=== PATIENT | male | born 1990 | race Caucasian/White ===

== ENCOUNTER 2018-01-22 11:46 | Emergency (ER) | payer BC ==
[2018-01-22] MEDS ORDERED: NA CHLORIDE 0.9% 1,000 ML ONE (12:37)
[2018-01-22] MEDS ORDERED: FAMOTIDINE 20 MG/2 ML VIAL IV ONE (12:37)
[2018-01-22] MEDS ORDERED: DICYCLOMINE HCL 10 MG CAP ONE (12:37)
[2018-01-22] MEDS ORDERED: ONDANSETRON 4 MG/2 ML VIAL ONE (12:37)
[2018-01-22 12:45] LABS: Absolute Lymphocytes (CBC) 2.8 K/uL (0.7-4.9); Absolute Neutrophil 3.7 K/uL (1.8-8.0); Eosinophils % 1.4 % (0-4.4); Hematocrit 44.2 % (39.6-49.0); Lymphocytes % 36.1 % (15.3-44.8); MCH 29.3 pg (27.0-35.0); MCV 84.7 fL (80-100); MPV 8.1 fL (7.6-11.3); Monocytes % 12.9 % (3.3-12.3); RBC Red Blood Cell Count 5.22 M/uL (4.33-5.43)
[2018-01-22 12:56] LABS: Albumin 3.8 g/dL (3.4-5.0); Bilirubin Direct 0.1 mg/dL (0-0.2); Bilirubin Total 0.3 mg/dL (0.2-1.0); Potassium 4.3 mmol/L (3.5-5.1); Protein, Total 7.3 g/dL (6.4-8.2)
[2018-01-22 13:27] LABS: Urine Bacteria NONE SEEN /HPF (NONE SEEN); Urine Culture Reflex Order NOT NEEDED; Urine Mucus MOD /HPF (NONE SEEN); Urine RBC NONE SEEN /HPF (NONE SEEN)
--- NOTE | 2018-01-22 14:08 | RAD REPORT ---
EXAM DESCRIPTION: CTAbdomen Pelvis W Contrast - 01/22/2018 1:51 pm CLINICAL HISTORY: Abdominal pain. ABD PAIN COMPARISON: No comparisons TECHNIQUE: Biphasic CT imaging of the abdomen and pelvis was performed with 100 ml non-ionic IV cont rast. All CT scans are performed using dose optimization technique as appropriate and may include automated exposure control or mA/KV adjustment according to patient size. FINDINGS: The lung bases are clear. The liver, spleen, pancreas, adrenal glands and kidneys are within normal limits. No bowel obstruction, free air, free fluid or abscess. The appendix is normal. No evidence of signi ficant lymphadenopathy. No suspicious bony findings. IMPRESSION: No acute intra-abdominal or pelvic finding.
--- NOTE | 2018-01-22 14:47 | EDPHYS ---
Physician Documentation [facility] Name: Theo Dela Cruz Age: 27 yrs Sex: Male : 1990 Arrival Date: 01/22/2018 Time: 11:48 Bed 16 Private MD: None, None ED Physician Nabil Sher HPI: 01/22 12:20 This 27 yrs old Male presents to ER via Ambulatory with complaints of cp Abdominal Pain, Vomiting. 12:20 The patient presents with abdominal pain in the lower abdomen. cp 12:20 Onset: The symptoms/episode began/occurred this morning. Associated signs and symptoms: cp Pertinent positives: 2 episodes of vomiting, Pertinent negatives: anorexia, blood in stools, chest pain, constipation, diarrhea, dysuria, fever, testicular pain. 12:20 The symptoms are described as waxing/waning. Modifying factors: the symptoms are cp aggravated by pressure. Severity of pain: in the emergency department the pain has improved mildly. Historical: - Allergies: 11:51 No Known Allergies; sv - Home Meds: 11:51 None [Active]; sv - PMHx: 11:51 Back pain; Chronic pain; sv - PSHx: 11:51 back surg; sv - Immunization history:: Adult Immunizations up to date. - Social history:: Smoking status: Patient/guardian denies using tobacco. - Ebola Screening: : No symptoms or risks identified at this time. ROS: 12:26 Constitutional: Negative for body aches, chills, fever, poor PO intake. cp 12:26 Eyes: Negative for injury, pain, redness, and discharge. cp 12:26 ENT: Negative for drainage from ear(s), ear pain, sore throat, difficulty swallowing, difficulty handling secretions. 12:26 Cardiovascular: Negative for chest pain, edema, palpitations. 12:26 Respiratory: Negative for cough, shortness of breath, wheezing. 12:26 Abdomen/GI: Positive for abdominal pain, nausea, vomiting, of the right lower quadrant and left lower quadrant, Negative for diarrhea, constipation, dysphagia, black/tarry stool, rectal bleeding. 12:26 Back: Negative for pain at rest, pain with movement, radiated pain. 12:26 : Negative for urinary symptoms, testicular pain 12:26 MS/extremity: Negative for decreased range of motion, pain, paresthesias. 12:26 Skin: Negative for cellulitis, rash. 12:26 Neuro: Negative for altered mental status, headache, weakness. 12:26 All other systems are negative. Exam: 12:30 Constitutional: The patient appears in no acute distress, alert, awake, non-toxic, well cp developed, well nourished. 12:30 Head/Face: Normocephalic, atraumatic. Eyes: Pupils equal round and reactive to light, cp extra-ocular motions intact. Lids and lashes normal. Conjunctiva and sclera are non-icteric and not injected. Cornea within normal limits. Periorbital areas with no swelling, redness, or edema. ENT: Nares patent. No nasal discharge, no septal abnormalities noted. Tympanic membranes are normal and external auditory canals are clear. Oropharynx with no redness, swelling, or masses, exudates, or evidence of obstruction, uvula midline. Mucous membranes moist. Neck: Trachea midline, no thyromegaly or masses palpated, and no cervical lymphadenopathy. Supple, full range of motion without nuchal rigidity, or vertebral point tenderness. No Meningismus. Chest/axilla: Normal chest wall appearance and motion. Nontender with no deformity. No lesions are appreciated. 12:30 Cardiovascular: Rate: normal, Rhythm: regular, Pulses: Pulses are 2+ in right radial artery and left radial artery. Heart sounds: murmur, not appreciated, rub, not appreciated, gallop, not appreciated, Edema: is not appreciated. 12:30 Respiratory: the patient does not display signs of respiratory distress, Respirations: normal, no use of accessory muscles, no retractions, no splinting, no tachypnea, labored breathing, is not present, Breath sounds: are clear throughout, no decreased breath sounds, no stridor, no wheezing. 12:30 Abdomen/GI: Inspection: abdomen appears normal, Bowel sounds: active, all quadrants, Palpation: soft, in all quadrants, moderate abdominal tenderness, in the left lower quadrant, rebound tenderness, is not appreciated, voluntary guarding, is elicited in the left lower quadrant, involuntary guarding, is not appreciated. 12:30 Back: pain, is absent, ROM is normal. 12:30 Skin: cellulitis, is not appreciated, no rash present. 14:45 ECG was reviewed by the Attending Physician. cp Vital Signs: 11:52 BP 145 / 106; Pulse 55; Resp 20; Temp 97.9(TE); Pulse Ox 98% ; Weight 108.86 kg; Height sv 6 ft. 1 in. (185.42 cm); Pain 4/10; 12:50 BP 124 / 96; Pulse 57; Resp 17; Pulse Ox 97% on R/A; rb1 13:50 BP 116 / 85; Pulse 48; Resp 19; Pulse Ox 99% ; rb1 14:48 BP 124 / 87; Pulse 44; Resp 18; Pulse Ox 97% on R/A; rb1 15:25 BP 118 / 82; Pulse 48; Resp 17; Pulse Ox 100% ; rb1 11:52 Body Mass Index 31.66 (108.86 kg, 185.42 cm) sv 14:48 Provider notifed of HR. rb1 MDM: 12:08 Patient medically screened. cp 12:30 Differential diagnosis: appendicitis, cholecystitis, Cholelithiasis, diverticulitis, cp gastritis, Pyelonephritis, Testicular Torsion, Ureterolithiasis, urinary tract infection. 14:45 Data reviewed: vital signs, nurses notes, lab test result(s), radiologic studies, CT cp scan. 14:45 Counseling: I had a detailed discussion with the patient and/or guardian regarding: the cp historical points, exam findings, and any diagnostic results supporting the discharge/admit diagnosis, lab results, radiology results, the need for outpatient follow up, a family practitioner, to return to the emergency department if symptoms worsen or persist or if there are any questions or concerns that arise at home. Response to treatment: the patient's symptoms have markedly improved after treatment, and as a result, I will discharge patient. Special discussion: Based on the patient's Hx, exam, and Dx evaluation, there is no indication for emergent surgery or inpatient Tx. It is understood by the patient/guardian that if the Sx's persist or worsen they need to return immediately for re-evaluation. 01/22 12:16 Order name: Amylase, Serum; Complete Time: 13:29 cp 01/22 12:16 Order name: Basic Metabolic Panel; Complete Time: 13:29 cp 01/22 13:30 Interpretation: Normal except: CL 110; GFR 82. cp 01/22 12:16 Order name: CBC with Diff; Complete Time: 13:29 cp 01/22 13:30 Interpretation: Normal except: MN% 12.9. cp 08/02 12:16 Order name: Creatinine for Radiology; Complete Time: 13:29 cp 02 12:16 Order name: Hepatic Function; Complete Time: 13:29 cp 02 12:16 Order name: Lipase; Complete Time: 13:29 cp 02 12:16 Order name: Urine Microscopic Only; Complete Time: 13:29 cp 02 12:16 Order name: IV Saline Lock; Complete Time: 12:54 cp 02 12:19 Order name: CT Abd/Pelvis - W/Contrast; Complete Time: 14:09 cp 02 14:28 Order name: EKG; Complete Time: 14:28 rb1 01/22 12:16 Order name: Labs collected and sent; Complete Time: 12:55 cp 01/22 12:16 Order name: Urine Dipstick-Ancillary (obtain specimen); Complete Time: 12:55 cp 01/22 14:09 Order name: PO challenge; Complete Time: 15:13 cp 01/22 14:28 Order name: EKG - Nurse/Tech; Complete Time: 15:13 rb1 EC:45 Rate is 45 beats/min. Rhythm is regular. MA interval is normal. QRS interval is normal. cp QT interval is normal. No ST changes noted. Interpreted by me. Reviewed by me. Administered Medications: 12:30 Drug: NS 0.9% 1000 ml Route: IV; Rate: 1 bolus; Site: left antecubital; rb1 13:38 Follow up: IV Status: Completed infusion rb1 12:30 Drug: Zofran 4 mg Route: IVP; Site: left antecubital; rb1 12:48 Follow up: Response: No adverse reaction; Nausea is decreased rb1 12:30 Drug: Bentyl 20 mg Route: PO; rb1 13:00 Follow up: Response: No adverse reaction; Pain is decreased rb1 12:30 Drug: Pepcid 20 mg Route: IVP; Site: left antecubital; rb1 12:48 Follow up: Response: No adverse reaction rb1 Disposition: 15:36 Co-signature as Attending Physician, Nabil Sher MD I agree with the assessment and kdr plan of care. Disposition: 01/22/18 14:47 Discharged to Home. Impression: Lower abdominal pain, unspecified, Nausea and vomiting. - Condition is Stable. - Discharge Instructions: Abdominal Pain, Adult, Dehydration, Adult, Nausea and Vomiting, Adult, Form - Return To Work. - Prescriptions for Bentyl 20 mg Oral Tablet - take 1 tablet by ORAL route every 6 hours As needed; 20 tablet. Pepcid 20 mg Oral Tablet - take 1 tablet by ORAL route every 12 hours for 10 days; 20 tablet. Zofran 4 mg Oral Tablet - take 1 tablet by ORAL route every 12 hours As needed; 20 tablet. - Medication Reconciliation Form, Thank You Letter, Antibiotic Education, Prescription Opioid Use, Work release form form. - Follow up: Private Physician; When: 1 - 2 days; Reason: Recheck today's complaints. - Problem is new. - Symptoms have improved. Signatures: Dispatcher [employer] EDMS Milena Rayo RN RN sv Nabil Sher MD MD kdr Rick Lamb PA PA cp Barber, Rebecca RN RN rb1 Corrections: (The following items were deleted from the chart) 15:29 14:47 01/22/2018 14:47 Discharged to Home. Impression: Lower abdominal pain, rb1 unspecified; Nausea and vomiting. Condition is Stable. Forms are Medication Reconciliation Form, Thank You Letter, Antibiotic Education, Prescription Opioid Use. Follow up: Private Physician; When: 1 - 2 days; Reason: Recheck today's complaints. Problem is new. Symptoms have improved. cp
--- NOTE | 2018-01-22 14:47 | ER ---
Nurse's Notes [facility] Name: Theo Dela Cruz Age: 27 yrs Sex: Male : 1990 Arrival Date: 01/22/2018 Time: 11:48 Bed 16 Private MD: None, None Diagnosis: Lower abdominal pain, unspecified;Nausea and vomiting Presentation: 01/22 11:51 Presenting complaint: Patient states: RLQ and LLQ pain and vomiting since this morning sv around 0100. Transition of care: patient was not received from another setting of care. Onset of symptoms was January 22, 2018 at 01:00. Care prior to arrival: None. 11:51 Method Of Arrival: Ambulatory sv 11:51 Acuity: CRISTIAN 3 sv 11:56 Risk Assessment: Do you want to hurt yourself or someone else? Patient reports no rb1 desire to harm self or others. Initial Sepsis Screen: Does the patient meet any 2 criteria? No. Patient's initial sepsis screen is negative. Does the patient have a suspected source of infection? No. Patient's initial sepsis screen is negative. Historical: - Allergies: 11:51 No Known Allergies; sv - Home Meds: 11:51 None [Active]; sv - PMHx: 11:51 Back pain; Chronic pain; sv - PSHx: 11:51 back surg; sv - Immunization history:: Adult Immunizations up to date. - Social history:: Smoking status: Patient/guardian denies using tobacco. - Ebola Screening: : No symptoms or risks identified at this time. Screenin:56 Abuse screen: Denies threats or abuse. Nutritional screening: No deficits noted. rb1 Tuberculosis screening: No symptoms or risk factors identified. Fall Risk None identified. Assessment: 11:56 General: Appears in no apparent distress. comfortable, Behavior is calm, cooperative, rb1 Denies fever. Pain: Complains of pain in suprapubic area, right lower quadrant and left lower quadrant Pain currently is 4 out of 10 on a pain scale. Pain began Today at 0100. Neuro: Level of Consciousness is awake, alert, obeys commands, Oriented to person, place, time, situation. Cardiovascular: Capillary refill < 3 seconds is brisk in bilateral fingers. Respiratory: Airway is patent Respiratory effort is even, unlabored, Respiratory pattern is regular, symmetrical. GI: Bowel sounds present X 4 quads. Abd is soft Abdomen is tender to palpation in suprapubic area and left lower quadrant Reports nausea, vomiting, x 3 since 0100 this morning Patient currently denies diarrhea. : No signs and/or symptoms were reported regarding the genitourinary system. : Denies burning with urination, urinary frequency. Derm: Skin is pink, warm \T\ dry. 12:55 Reassessment: Patient appears in no apparent distress at this time. No changes from rb1 previously documented assessment. Family at bedside. 13:48 Reassessment: Pt in CT now. ss 14:15 Reassessment: Patient appears in no apparent distress at this time. Patient and/or rb1 family updated on plan of care and expected duration. Pain level reassessed. Patient is alert, oriented x 3, equal unlabored respirations, skin warm/dry/pink. 15:12 Reassessment: Patient appears in no apparent distress at this time. No changes from rb1 previously documented assessment. Vital Signs: 11:52 BP 145 / 106; Pulse 55; Resp 20; Temp 97.9(TE); Pulse Ox 98% ; Weight 108.86 kg; Height sv 6 ft. 1 in. (185.42 cm); Pain 4/10; 12:50 BP 124 / 96; Pulse 57; Resp 17; Pulse Ox 97% on R/A; rb1 13:50 BP 116 / 85; Pulse 48; Resp 19; Pulse Ox 99% ; rb1 14:48 BP 124 / 87; Pulse 44; Resp 18; Pulse Ox 97% on R/A; rb1 15:25 BP 118 / 82; Pulse 48; Resp 17; Pulse Ox 100% ; rb1 11:52 Body Mass Index 31.66 (108.86 kg, 185.42 cm) sv 14:48 Provider notifed of HR. rb1 ED Course: 11:48 Patient arrived in ED. sb2 11:49 None, None is Private Physician. sb2 11:51 Triage completed. sv 11:52 Arm band placed on right wrist. sv 11:56 Patient has correct armband on for positive identification. Placed in gown. Bed in low rb1 position. Call light in reach. Side rails up X 1. Pulse ox on. NIBP on. Warm blanket given. 12:01 Rick Lamb PA is PHCP. cp 12:01 Nabil Sher MD is Attending Physician. cp 12:08 Tatianna Cooney, RN is Primary Nurse. rb1 12:41 Oral contrast given. vr 13:51 CT Abd/Pelvis - W/Contrast In Process Unspecified. EDMS 14:49 EKG done, by television technician. reviewed by Rick FLORES. at1 15:29 No provider procedures requiring assistance completed. IV discontinued, intact, rb1 bleeding controlled, No redness/swelling at site. Pressure dressing applied. Administered Medications: 12:30 Drug: NS 0.9% 1000 ml Route: IV; Rate: 1 bolus; Site: left antecubital; rb1 13:38 Follow up: IV Status: Completed infusion rb1 12:30 Drug: Zofran 4 mg Route: IVP; Site: left antecubital; rb1 12:48 Follow up: Response: No adverse reaction; Nausea is decreased rb1 12:30 Drug: Bentyl 20 mg Route: PO; rb1 13:00 Follow up: Response: No adverse reaction; Pain is decreased rb1 12:30 Drug: Pepcid 20 mg Route: IVP; Site: left antecubital; rb1 12:48 Follow up: Response: No adverse reaction rb1 Outcome: 14:47 Discharge ordered by MD. cp 15:29 Patient left the ED. rb1 15:29 Discharged to home ambulatory, with family. rb1 15:29 Condition: stable 15:29 Discharge instructions given to patient, Instructed on discharge instructions, follow up and referral plans. medication usage, Demonstrated understanding of instructions, follow-up care, medications, Prescriptions given X 3. Signatures: Dispatcher [employer] EDSC Milena Rayo RN RN sv Smirch, Shelby, RN RN ss Davis, Victoria vr Orquidea hollingsworth, manager travel EKG Tat1 Rick Lamb PA PA cp Tatianna oConey, RN RN rb1 Micaela Alcala sb2
--- NOTE | 2018-01-22 16:52 | EKG ---
Test Date: 2018-01-22 Test Time: 14:39:40 Seam Rubbing Machine Operator: LAN MEASUREMENT RESULTS: Intervals: Rate: 45 [place]: 114 QRSD: 96 QT: 456 QTc: 394 [place]: P: 5 [place]: 114 QRS: 38 T: 16 INTERPRETIVE STATEMENTS: Sinus bradycardia with sinus arrhythmia Otherwise normal ECG No previous ECG available for comparison Electronically Signed On 01-22-18 16:51:45 CDT by Dustin Martínez
== END 2018-01-22 15:29 | disposition home or self-care (01) ==
LOC: ER 11:46
DX: R10.30 Lower abdominal pain, unspecified (principal); R11.2 Nausea with vomiting, unspecified
CPT/HCPCS: 36415; 74177; 80048; 80076; 81015; 82150; 83690; 85025; 93005; 96361; 96374; 96375; 99284; J2405; J7030; Q9967

== ENCOUNTER 2020-01-07 17:21 | Emergency (ER) | payer BC, SELFPAY ==
[2020-01-07] MEDS ORDERED: dexAMETHasone 10 MG/ML VIAL ONE (18:23)
[2020-01-07] MEDS ORDERED: NA CHLORIDE 0.9% 1,000 ML ONE (18:27)
--- NOTE | 2020-01-07 18:32 | RAD REPORT ---
EXAM DESCRIPTION: RAD - Chest Single View - 01/07/2020 6:25 pm CLINICAL HISTORY: DYSPNEA Chest pain. COMPARISON: Chest Single View dated 04/15/2017 FINDINGS: Portable technique limits examination quality. The lungs are grossly clear. The heart is normal in size. No displaced fractures. IMPRESSION: No acute intrathoracic process suspected.
[2020-01-07 18:47] LABS: Absolute Lymphocytes (CBC) 4.5 K/uL (0.7-4.9); Basophils % 0.8 % (0-1.3); Hematocrit 45.8 % (39.6-49.0); Lymphocytes % 35.4 % (15.3-44.8); MPV 7.9 fL (7.6-11.3)
--- NOTE | 2020-01-07 19:09 | ER ---
Nurse's Notes [facility] Name: Theo Dela Cruz Age: 29 yrs Sex: Male : 1990 Arrival Date: 01/07/2020 Time: 17:30 Bed 16 Private MD: Diagnosis: Viral infection, unspecified Presentation: 01/06 17:35 Chief complaint: Patient states: N/V/D for 4 days. Cough and SOB for 1 day. No fever at ll1 home. Coronavirus screen: Patient reports a cough. Patient reports shortness of breath or difficulty breathing. Patient denies measured and/or subjective temperature greater than 100.4F prior to today's visit. Patient denies travel on a cruise ship or to a country the [facility] currently lists as an affected area. Patient reports contact with known and/or suspected case of COVID-19. Patient was placed back in the lobby due to no available rooms at this time. Patient was instructed to always wear their mask and to isolate themselves as much as possible from others in the lobby. Ebola Screen: Patient denies travel to an Ebola-affected area in the 21 days before illness onset. Initial Sepsis Screen: Does the patient meet any 2 criteria? HR > 90 bpm. Risk Assessment: Do you want to hurt yourself or someone else? Patient reports no desire to harm self or others. Onset of symptoms was January 03, 2020. 17:35 Method Of Arrival: Ambulatory ll1 17:35 Acuity: CRISTIAN 3 ll1 20:01 Initial Sepsis Screen: Does the patient have a suspected source of infection? No. ks7 Patient's initial sepsis screen is negative. Triage Assessment: 18:39 General: Appears uncomfortable, obese, Behavior is calm, cooperative. Pain: Complains ks7 of pain in generalized body aches Pain currently is 5 out of 10 on a pain scale. Quality of pain is described as aching. Respiratory: Reports shortness of breath pain with cough pain with respiration Onset: The symptoms/episode began/occurred yesterday, the patient has moderate shortness of breath. Historical: - Allergies: 17:37 No Known Allergies; ll1 - PMHx: 17:37 Back pain; Chronic pain; ll1 17:37 ADD/ADHD; Bipolar disorder; ll1 - PSHx: 17:37 back surg; ll1 - Immunization history:: Adult Immunizations up to date. - Social history:: Smoking status: Patient denies any tobacco usage or history of. Patient/guardian denies using alcohol, street drugs, tobacco products. Screenin:41 Abuse screen: Denies threats or abuse. Nutritional screening: No deficits noted. ks7 Tuberculosis screening: No symptoms or risk factors identified. Fall Risk None identified. Assessment: 18:41 General: Appears uncomfortable. Cardiovascular: Rhythm is regular. Respiratory: Airway ks7 is patent Respiratory effort is even, [place] 20:01 Reassessment: pt ambulated out of ED independently. ks7 Vital Signs: 17:35 Pulse 104; Resp 18; Temp 98.5; Pulse Ox 96% ; Pain 6/10; ll1 17:35 BP 155 / 100; ll1 18:39 Temp 98(TE); Pain 5/10; ks7 20:00 BP 144 / 96; Pulse 76; Resp 18; Temp 97.6(TE); Pulse Ox 96% on R/A; Pain 0/10; ks7 20:01 Pulse Ox 96% on R/A; Pain 0/10; ks7 ED Course: 17:30 Patient arrived in ED. fj1 17:36 Triage completed. ll1 17:38 Arm band placed on Patient notified of wait time. ll1 17:48 Yuniel Man PA is PHCP. jr8 17:48 Nabil Sher MD is Attending Physician. jr8 18:12 Ashwini Villagomez, BRIGIDA is Primary Nurse. ks7 18:25 XRAY Chest (1 view) In Process Unspecified. EDMS 18:41 Resting quietly. ks7 18:41 Patient has correct armband on for positive identification. Bed in low position. Call ks7 light in reach. Side rails up X2. 18:41 No provider procedures requiring assistance completed. Inserted saline lock: 20 gauge ks7 in left antecubital area, using aseptic technique. 18:43 COVID-19 Sent. ks7 18:44 Basic Metabolic Panel Sent. ks7 18:44 CBC with Diff Sent. ks7 20:00 IV discontinued, intact, bleeding controlled, No redness/swelling at site. ks7 Administered Medications: Discontinued: NS 0.9% 1000 ml IV at 1000 ml once 18:35 Drug: NS 0.9% 1000 ml Route: IV; Rate: 1000 ml; Site: left antecubital; ks7 18:35 Drug: Decadron - Dexamethasone 10 mg Route: IVP; Rate: bolus; Site: left antecubital; ks7 20:01 Follow up: Pulse Ox 96% RA; Pain 0/10 Adult 7 Outcome: 19:08 Discharge ordered by . jr8 20:00 Discharged to home ambulatory, with family. ks7 20:00 Condition: good 20:00 Discharge instructions given to patient, Instructed on discharge instructions, medication usage, Demonstrated understanding of instructions, medications. 20:02 Patient left the ED. ks7 Addendum: 01/12/2020 13:02 Addendum: COVID-19 Result: Negative result given to RN to notify pt. Contacted by: Poonam Mack RN . Notified pt of negative COVID 19 swab results. Pt advised that even with a negative test result they should remain in isolation until symptom free for 3 days without medication. Pt also advised to return to the ED for worsening symptoms. Signatures: Dispatcher [employer] EDMI Vanesa Mack RN RN dm5 Yuniel Man PA PA jr8 Alexis Gilbert fj1 Maxi Peng RN RN ll1 Ashwini Villagomez RN RN ks7
--- NOTE | 2020-01-07 19:09 | EDPHYS ---
Physician Documentation [facility] Name: Theo Dela Cruz Age: 29 yrs Sex: Male : 1990 Arrival Date: 01/07/2020 Time: 17:30 Bed 16 Private MD: ED Physician Nabil Sher HPI: 01/06 19:05 This 29 yrs old Male presents to ER via Ambulatory with complaints of jr8 Breathing Difficulty, Vomiting/Diarrhea. 19:05 The patient has shortness of breath at rest. Onset: The symptoms/episode began/occurred jr8 gradually, 3 day(s) ago. Duration: The symptoms are continuous. The patient's shortness of breath has no apparent modifying factors. Associated signs and symptoms: Pertinent positives: non-productive cough, vomiting, diarrhea. Severity of symptoms: At their worst the symptoms were moderate in the emergency department the symptoms are unchanged. The patient has not experienced similar symptoms in the past. The patient has not recently seen a physician. Stated that he has been in contact with COVID + Family member. Now having symptoms of covid . Historical: - Allergies: 17:37 No Known Allergies; ll1 - PMHx: 17:37 Back pain; Chronic pain; ll1 17:37 ADD/ADHD; Bipolar disorder; ll1 - PSHx: 17:37 back surg; ll1 - Immunization history:: Adult Immunizations up to date. - Social history:: Smoking status: Patient denies any tobacco usage or history of. Patient/guardian denies using alcohol, street drugs, tobacco products. ROS: 19:05 Eyes: Negative for injury, pain, redness, and discharge, ENT: Negative for injury, jr8 pain, and discharge, Neck: Negative for injury, pain, and swelling, Cardiovascular: Negative for chest pain, palpitations, and edema, Back: Negative for injury and pain, MS/Extremity: Negative for injury and deformity, Skin: Negative for injury, rash, and discoloration, Neuro: Negative for headache, weakness, numbness, tingling, and seizure. 19:05 Constitutional: Positive for fatigue, malaise. 19:05 Respiratory: Positive for cough, shortness of breath. 19:05 Abdomen/GI: Positive for nausea, vomiting, and diarrhea, Negative for abdominal pain. Exam: 19:05 Eyes: Pupils equal round and reactive to light, extra-ocular motions intact. Lids and jr8 lashes normal. Conjunctiva and sclera are non-icteric and not injected. Cornea within normal limits. Periorbital areas with no swelling, redness, or edema. ENT: Nares patent. No nasal discharge, no septal abnormalities noted. Tympanic membranes are normal and external auditory canals are clear. Oropharynx with no redness, swelling, or masses, exudates, or evidence of obstruction, uvula midline. Mucous membranes moist. Neck: Trachea midline, no thyromegaly or masses palpated, and no cervical lymphadenopathy. Supple, full range of motion without nuchal rigidity, or vertebral point tenderness. No Meningismus. Cardiovascular: Regular rate and rhythm with a normal S1 and S2. No gallops, murmurs, or rubs. Normal PMI, no JVD. No pulse deficits. Respiratory: Lungs have equal breath sounds bilaterally, clear to auscultation and percussion. No rales, rhonchi or wheezes noted. No increased work of breathing, no retractions or nasal flaring. Abdomen/GI: Soft, non-tender, with normal bowel sounds. No distension or tympany. No guarding or rebound. No evidence of tenderness throughout. Back: No spinal tenderness. No costovertebral tenderness. Full range of motion. Skin: Warm, dry with normal turgor. Normal color with no rashes, no lesions, and no evidence of cellulitis. MS/ Extremity: Pulses equal, no cyanosis. Neurovascular intact. Full, normal range of motion. Neuro: Awake and alert, GCS 15, oriented to person, place, time, and situation. Cranial nerves II-XII grossly intact. Motor strength 5/5 in all extremities. Sensory grossly intact. Cerebellar exam normal. Normal gait. Vital Signs: 17:35 Pulse 104; Resp 18; Temp 98.5; Pulse Ox 96% ; Pain 6/10; ll1 17:35 BP 155 / 100; ll1 18:39 Temp 98(TE); Pain 5/10; ks7 20:00 BP 144 / 96; Pulse 76; Resp 18; Temp 97.6(TE); Pulse Ox 96% on R/A; Pain 0/10; ks7 20:01 Pulse Ox 96% on R/A; Pain 0/10; ks7 MDM: 17:52 Patient medically screened. jr8 19:06 Data reviewed: vital signs, nurses notes, lab test result(s), radiologic studies, plain jr8 films, and as a result, I will discharge patient. Data interpreted: Pulse oximetry: on room air is 96 %. Interpretation: normal. Counseling: I had a detailed discussion with the patient and/or guardian regarding: the historical points, exam findings, and any diagnostic results supporting the discharge/admit diagnosis, lab results, radiology results, the need for outpatient follow up, a family practitioner, to return to the emergency department if symptoms worsen or persist or if there are any questions or concerns that arise at home. ED course: Patient stable. Without acute respiratory compromise. SP02 stable. No acute findings on imaging and labs. Will d/c home to f/u with PCP. To continue to isolate until COVID swab comes back. If worse knows to return to ED . 01/06 18:12 Order name: CBC with Diff; Complete Time: 18:53 [facility] 01/06 18:12 Order name: Basic Metabolic Panel; Complete Time: 19:06 [facility] 01/06 18:12 Order name: COVID-19 [facility] 01/06 18:12 Order name: XRAY Chest (1 view); Complete Time: 18:48 [facility] 01/06 18:12 Order name: IV; Complete Time: 18:44 [facility] Administered Medications: Discontinued: NS 0.9% 1000 ml IV at 1000 ml once 18:35 Drug: NS 0.9% 1000 ml Route: IV; Rate: 1000 ml; Site: left antecubital; ks7 18:35 Drug: Decadron - Dexamethasone 10 mg Route: IVP; Rate: bolus; Site: left antecubital; ks7 20:01 Follow up: Pulse Ox 96% RA; Pain 0/10 Adult ks7 Disposition: 01/07 08:19 Co-signature as Attending Physician, Nabil Sher MD I agree with the assessment and kdr plan of care. Disposition: 01/07/20 19:08 Discharged to Home. Impression: Viral infection, unspecified. - Condition is Stable. - Discharge Instructions: COVID-19. - Prescriptions for Prednisone 20 mg Oral Tablet - take 1 tablet by ORAL route once daily for 7 days; 7 tablet. Zofran 4 mg Oral Tablet - take 1 tablet by ORAL route every 12 hours As needed; 20 tablet. - Medication Reconciliation Form, Thank You Letter, Antibiotic Education, Prescription Opioid Use form. - Follow up: Private Physician; When: 1 week; Reason: Recheck today's complaints, Continuance of care, Re-evaluation by your physician. - Problem is new. - Symptoms have improved. Signatures: Dispatcher [employer] EDMS Nabil Sher MD MD kdr Roszak, Josh, PA PA jr8 Maxi Peng RN RN ll1 Ashwini Villagomez RN RN ks7 Corrections: (The following items were deleted from the chart) 01/06 20:02 19:08 01/07/2020 19:08 Discharged to Home. Impression: Viral infection, unspecified. ks7 Condition is Stable. Forms are Medication Reconciliation Form, Thank You Letter, Antibiotic Education, Prescription Opioid Use. Follow up: Private Physician; When: 1 week; Reason: Recheck today's complaints, Continuance of care, Re-evaluation by your physician. Problem is new. Symptoms have improved. jr8
[2020-01-07 20:49] VITALS: O2SAT 96
[2020-01-07 20:52] VITALS: BP 144/96; TEMP 97.6
== END 2020-01-07 20:02 | disposition home or self-care (01) ==
LOC: ER 17:21
DX: B34.9 Viral infection, unspecified (principal); Z20.828 Contact with and (suspected) exposure to other viral communicable diseases
CPT/HCPCS: 36415; 71045; 80048; 85025; 96374; 99284; J1100; J7030; U0001

== ENCOUNTER 2020-09-14 16:18 | Inpatient (IN) | payer SELFPAY ==
[2020-09-14 18:15] LABS: Basophils % 1.2 % (0-1.3); Hematocrit 46.3 % (39.6-49.0); Lymphocytes % 31.7 % (15.3-44.8); MPV 7.6 fL (7.6-11.3); RBC Red Blood Cell Count 5.51 M/uL (4.33-5.43)
[2020-09-14] MEDS ORDERED: ASPIRIN 81 MG CHEWABLE TABLET ONE (18:22)
[2020-09-14 18:23] LABS: Protime INR 1.03
[2020-09-14 18:35] LABS: ALT/SGPT 51 U/L (12-78); AST/SGOT 24 U/L (15-37); Alkaline Phosphatase 89 U/L (45-117); BUN Blood Urea Nitrogen 18 mg/dL (7-18); Bicarbonate 24 mmol/L (21-32); Bilirubin Direct 0.2 mg/dL (0-0.2); Bilirubin Total 0.5 mg/dL (0.2-1.0); Glucose Level 89 mg/dL (74-106); Magnesium 2.3 mg/dL (1.8-2.4); NT PRO-BNP 6 pg/mL (<125); Potassium 4.1 mmol/L (3.5-5.1); Protein, Total 8.3 g/dL (6.4-8.2); Sodium Level 140 mmol/L (136-145); Troponin (Emerg Dept Use Only) < 0.02 ng/mL (0.0-0.045)
--- NOTE | 2020-09-14 19:34 | ER ---
Nurse's Notes [facility] Name: Theo Dela Cruz Age: 30 yrs Sex: Male : 1990 Arrival Date: 09/14/2020 Time: 16:20 Bed 8 Private MD: Diagnosis: Chest pain, unspecified Presentation: 09/14 16:21 Method Of Arrival: Ambulatory ca1 16:34 Chief complaint: Patient states: 2 months now, been having chest pains, been hard to ca1 breathe and numbness on L arm. Throughout today, h been having chest pains and SOB. Chest pains and SOB is worse with exertion. Coronavirus screen: Client denies travel out of the [place] in the last 14 days. shortness of breath, Client presents with at least one sign or symptom that may indicate coronavirus-19. Standard/surgical mask placed on the client. Provider contacted for isolation considerations. Ebola Screen: Patient negative for fever greater than or equal to 101.5 degrees Fahrenheit, and additional compatible Ebola Virus Disease symptoms Patient denies exposure to infectious person. Patient denies travel to an Ebola-affected area in the 21 days before illness onset. No symptoms or risks identified at this time. Initial Sepsis Screen: Does the patient meet any 2 criteria? No. Patient's initial sepsis screen is negative. Does the patient have a suspected source of infection? No. Patient's initial sepsis screen is negative. Risk Assessment: Do you want to hurt yourself or someone else? Patient reports no desire to harm self or others. Onset of symptoms was September 14, 2020. 16:34 Acuity: CRISTIAN 3 ca1 Historical: - Allergies: 16:39 No Known Allergies; ca1 - PMHx: 16:39 ADD/ADHD; Back pain; Bipolar disorder; Chronic pain; ca1 16:39 Hypertension; ca1 - PSHx: 16:39 back surg; ca1 - Immunization history:: Flu vaccine is up to date. - Social history:: Smoking status: Patient/guardian denies using tobacco, the patient reports quitting approximately 10 years ago. Screenin:13 Abuse screen: Denies threats or abuse. Nutritional screening: No deficits noted. jl7 Tuberculosis screening: No symptoms or risk factors identified. Fall Risk IV access (20 points). Total Anderson Fall Scale indicates No Risk (0-24 pts). Assessment: 18:00 General: Appears in no apparent distress. uncomfortable, Behavior is cooperative, jl7 anxious. Pain: Complains of pain in chest Pain currently is 6.5 out of 10 on a pain scale. at worst was 10 out of 10 on a pain scale. Quality of pain is described as pressure, Pain began 2.5 months ago Is intermittent. Neuro: Level of Consciousness is awake, alert, obeys commands, Oriented to person, place, time, situation. Cardiovascular: Patient's skin is warm and dry. Rhythm is sinus rhythm. Respiratory: Airway is patent Respiratory effort is even, unlabored, Respiratory pattern is regular, symmetrical. Derm: Skin is pink, warm \T\ dry. Vital Signs: 16:34 BP 125 / 93; Pulse 102; Resp 18 S; Temp 97.3(TE); Pulse Ox 99% on R/A; Weight 117.93 kg ca1 (R); Height 6 ft. 2 in. (187.96 cm) (R); Pain 5/10; 17:52 BP 126 / 105 LA; jl7 17:54 BP 133 / 106 RA; jl7 18:13 BP 120 / 100; Pulse 82; Resp 20; Pulse Ox 95% ; Pain 6/10; jl7 18:52 BP 127 / 100; Pulse 74; Resp 17; Pulse Ox 96% ; jl7 16:34 Body Mass Index 33.38 (117.93 kg, 187.96 cm) ca1 ED Course: 16:20 Patient arrived in ED. ds1 16:25 Triage completed. ca1 16:39 Arm band placed on right wrist. ca1 17:31 Rick Lamb PA is PHCP. cp 17:32 Nabil Sher MD is Attending Physician. cp 17:53 Eula Guido, BRIGIDA is Primary Nurse. jl7 18:00 Patient has correct armband on for positive identification. Bed in low position. Call [facility] light in reach. Side rails up X 1. senior packaging engineer on. Pulse ox on. NIBP on. 18:00 Initial lab(s) drawn, by me, sent to lab. Inserted saline lock: 20 gauge in left jl7 antecubital area, using aseptic technique. Blood collected. 18:29 XRAY Chest (1 view) In Process Unspecified. EDMS 19:32 Alec Contreras is Hospitalizing Provider. cp 19:50 Dale Raines MD is Hospitalizing Provider. cp 20:02 CT Aorta for Dissection In Process Unspecified. EDMS 09/15 00:15 Primary Nurse role handed off by Eula Guido RN sg 00:16 No provider procedures requiring assistance completed. Patient admitted, IV remains in ea place. 01:02 Roaslie Choi RN is Primary Nurse. ea 07:13 Primary Nurse role handed off by Rosaile Choi RN tw2 07:13 Bhavya Medeiros RN is Primary Nurse. tw2 Administered Medications: 09/14 18:08 Drug: Aspirin Chewable Tablet 324 mg Route: PO; 7 18:52 Follow up: Response: No adverse reaction [facility] : Drug: morphine 2 mg Route: IVP; Site: left antecubital; ea 09/15 01:02 Drug: Ativan 1 mg Route: IVP; Site: left antecubital; ea Outcome: 09/14 19:33 Decision to Hospitalize by Provider. cp 20:00 Admitted to ER Hold. Please see [facility] for further documentation. ea 20:00 Condition: stable 20:00 Instructed on the need for admit, Demonstrated understanding of instructions. 09/15 16:38 Patient left the ED. tw2 Signatures: Dispatcher [employer] EDMS Jose J Hi RN RN sg Sanford, Demi ds1 Rick Lamb PA PA cp Bhavya Medeiros RN RN tw2 Eula Guido RN RN jl7 Rosalie Choi RN RN ea Acob, Cheryl, RN RN ca1 Corrections: (The following items were deleted from the chart) 09/14 16: 16:21 Chief complaint: Patient states: RLQ pain radiating to the R lower back. Was ca1 diagnosed with bladder infection last week, completed ABX. Still hurting at this time. Yesterday, I was prescribed Cephalexin. But Am still hurting, dull consistent pain from front all the way to the back. ca1 16 16:21 Coronavirus screen: Client denies travel out of the [place] in the last 14 days. At ca1 this time, the client does not indicate any symptoms associated with coronavirus-19. ca1 16:21 Ebola Screen: Patient negative for fever greater than or equal to 101.5 degrees ca1 Fahrenheit, and additional compatible Ebola Virus Disease symptoms Patient denies exposure to infectious person. Patient denies travel to an Ebola-affected area in the 21 days before illness onset. No symptoms or risks identified at this time. ca1 16: Risk Assessment: Do you want to hurt yourself or someone else? Patient reports no ca1 desire to harm self or others. ca1 16: Initial Sepsis Screen: Does the patient meet any 2 criteria? No. Patient's ca1 initial sepsis screen is negative. Does the patient have a suspected source of infection? No. Patient's initial sepsis screen is negative. ca1 16: Onset of symptoms was September 14, 2020 ca1 ca1 16: Chief complaint: Patient states: RLQ pain radiating to the R lower back. Was ca1 diagnosed with bladder infection last week, completed ABX. Still hurting at this time. Yesterday, I was prescribed Cephalexin. But Am still hurting, dull consistent pain from front all the way to the back. ca1 Method Of Arrival: Ambulatory ca1 ca1 16: Acuity: CRISTIAN 3 ca1 ca1 16:21 BP 132 / 80; Pulse 73bpm; Resp 16bpm; Spontaneous; Pulse Ox 99% RA; Temp 97.4F ca1 Temporal; 86.18 kg Reported; Height 5 ft. 1 in. Reported; BMI: 35.9; Pain 7/10; ca1 16: Social history: Smoking status: Patient denies any tobacco usage or history of. ca1 ca1 16: Immunization history: Flu vaccine is not up to date. ca1 ca1
--- NOTE | 2020-09-14 19:34 | EDPHYS ---
Physician Documentation [facility] Name: Theo Dela Cruz Age: 30 yrs Sex: Male : 1990 Arrival Date: 09/14/2020 Time: 16:20 Bed 8 Private MD: ED Physician Nabil Sher HPI: 09/14 17:45 This 30 yrs old Male presents to ER via Ambulatory with complaints of cp Shortness Of Breath, Numbness Of Arm. 17:45 The patient or guardian reports chest pain that is located primarily in the left side cp of chest. The pain radiates to the left arm, left back. Associated signs and symptoms: Pertinent positives: numbness of left arm. 17:45 The chest pain is described as a pressure. cp 17:45 Duration: The patient or guardian reports multiple episodes, that are intermittent, cp worse with activity. Historical: - Allergies: 16:39 No Known Allergies; ca1 - PMHx: 16:39 ADD/ADHD; Back pain; Bipolar disorder; Chronic pain; ca1 16:39 Hypertension; ca1 - PSHx: 16:39 back surg; ca1 - Immunization history:: Flu vaccine is up to date. - Social history:: Smoking status: Patient/guardian denies using tobacco, the patient reports quitting approximately 10 years ago. ROS: 17:50 Constitutional: Negative for body aches, chills, fever, poor PO intake. cp 17:50 Eyes: Negative for injury, pain, redness, and discharge. cp 17:50 ENT: Negative for ear pain, sore throat, difficulty swallowing, difficulty handling secretions. 17:50 Cardiovascular: Positive for chest pain, Negative for edema, palpitations. 17:50 Respiratory: Negative for cough, shortness of breath, wheezing. 17:50 Abdomen/GI: Negative for abdominal pain, nausea, vomiting, and diarrhea. 17:50 Back: Positive for radiated pain, Negative for injury or acute deformity. 17:50 MS/extremity: Positive for pain, paresthesias, of the left arm, Negative for injury or acute deformity, decreased range of motion, swelling. 17:50 Skin: Negative for rash. 17:50 Neuro: Negative for altered mental status, headache, syncope, weakness. 17:50 All other systems are negative. Exam: 17:15 ECG was reviewed by the Attending Physician. kdr 17:55 Constitutional: The patient appears in no acute distress, alert, awake, cp non-diaphoretic, non-toxic, well developed, well nourished, obese. 17:55 Head/Face: Normocephalic, atraumatic. cp 17:55 Eyes: Periorbital structures: appear normal, Conjunctiva: normal, no exudate, no injection, Sclera: no appreciated abnormality, Lids and lashes: appear normal, bilaterally. 17:55 ENT: External ear(s): are unremarkable, Nose: is normal, Mouth: Lips: moist, Oral mucosa: moist, Posterior pharynx: Airway: no evidence of obstruction, patent. 17:55 Neck: ROM/movement: is normal, is supple, without pain, no range of motions limitations. 17:55 Chest/axilla: Inspection: normal, Palpation: is normal, no crepitus, no tenderness. 17:55 Cardiovascular: Rate: tachycardic, Rhythm: regular, Heart sounds: murmur, not appreciated, Edema: is not appreciated, JVD: is not appreciated. 17:55 Respiratory: the patient does not display signs of respiratory distress, Respirations: normal, no use of accessory muscles, no retractions, labored breathing, is not present, Breath sounds: are clear throughout, no decreased breath sounds, no stridor, no wheezing. 17:55 Abdomen/GI: Exam negative for discomfort, distension, guarding, Inspection: abdomen appears normal. 17:55 Back: pain, is absent, ROM is normal. 17:55 Musculoskeletal/extremity: Exam is negative for decreased range of motion, deformity, injury. 17:55 Skin: no rash present. 17:55 Neuro: Orientation: to person, place \\T\\ time. Mentation: is normal, Cerebellar function: is grossly normal, Motor: moves all fours, strength is normal, Sensation: no obvious gross deficits. Vital Signs: 16:34 BP 125 / 93; Pulse 102; Resp 18 S; Temp 97.3(TE); Pulse Ox 99% on R/A; Weight 117.93 kg ca1 (R); Height 6 ft. 2 in. (187.96 cm) (R); Pain 5/10; 17:52 BP 126 / 105 LA; jl7 17:54 BP 133 / 106 RA; jl7 18:13 BP 120 / 100; Pulse 82; Resp 20; Pulse Ox 95% ; Pain 6/10; jl7 18:52 BP 127 / 100; Pulse 74; Resp 17; Pulse Ox 96% ; jl7 16:34 Body Mass Index 33.38 (117.93 kg, 187.96 cm) ca1 MDM: 17:41 Patient medically screened. 19:35 Data reviewed: vital signs, nurses notes, lab test result(s), EKG, radiologic studies, cp plain films. 19:35 Counseling: I had a detailed discussion with the patient and/or guardian regarding: the cp historical points, exam findings, and any diagnostic results supporting the discharge/admit diagnosis, lab results, radiology results, the need for further work-up and treatment in the hospital. Physician consultation: Nicholas FLORES was called at 19:30, was contacted at 19:30, regarding admission, to the telemetry unit. patient's condition. 09/14 17:44 Order name: Basic Metabolic Panel 09/14 17:44 Order name: CBC with Diff 09/14 17:44 Order name: LFT's cp 09/14 17:44 Order name: Magnesium cp 09/14 17:44 Order name: NT PRO-BNP; Complete Time: 19:07 cp 09/14 17:44 Order name: PT-INR; Complete Time: 19:07 cp 09/14 17:44 Order name: Troponin (emerg Dept Use Only); Complete Time: 19:07 cp 09/14 17:44 Order name: Basic Metabolic Panel; Complete Time: 19:07 EDDE 09/14 17:44 Order name: CBC with Automated Diff; Complete Time: 19:07 EDDE 09/14 17:44 Order name: Liver (Hepatic) Function; Complete Time: 19:07 EDDE 09/14 17:44 Order name: Magnesium; Complete Time: 19:07 EDDE 09/14 19:09 Order name: COVID-19 : Document "Date of Symptom Onset" if Symptomatic. cp 09/14 19:10 Order name: UDS cp 09/14 19:13 Order name: D-Dimer; Complete Time: 21:15 cp 09/14 17:44 Order name: XRAY Chest (1 view); Complete Time: 21:15 cp 09/14 19:13 Order name: LAB Add On 09/14 19:31 Order name: CT Aorta for Dissection; Complete Time: 21:15 cp 09/14 22:05 Order name: SARS-COV-2 RT PCR EDDE 09/15 01:08 Order name: Troponin I [facility] 09/15 01:14 Order name: T4 Free EDDE 09/15 01:14 Order name: Thyroid Stimulating Hormone [facility] 09/15 06:43 Order name: CBC with Automated Diff [facility] 09/15 07:18 Order name: Comprehensive Metabolic Panel [facility] 09/15 07:18 Order name: Lipid Profile [facility] 09/15 07:18 Order name: Magnesium EDDE 09/15 09:14 Order name: Troponin I [facility] 09/15 11:03 Order name: Hemoglobin A1c [facility] 09/15 14:27 Order name: NM [facility] 09/14 16:39 Order name: EKG; Complete Time: 16:40 ca1 09/14 16:39 Order name: EKG - Nurse/Tech; Complete Time: 16:44 ca1 09/14 17:44 Order name: Cardiac monitoring; Complete Time: 18:03 cp 09/14 17:44 Order name: IV Saline Lock; Complete Time: 18:04 cp 09/14 17:44 Order name: Labs collected and sent; Complete Time: 18:04 cp 09/14 17:44 Order name: O2 Per Protocol; Complete Time: 18:04 cp 09/14 17:44 Order name: O2 Sat Monitoring; Complete Time: 18:04 cp 09/14 17:44 Order name: Blood Pressure Recheck: bilateral upper extremities; Complete Time: 18:04 cp 09/14 19:55 Order name: CONS Physician Consult [facility] EC:15 Rate is 98 beats/min. Rhythm is regular, Normal Sinus Rhythm with No ectopy. QRS [place] kdr is Normal. MO interval is normal. QRS interval is normal. QT interval is normal. Clinical impression: Normal ECG. Administered Medications: 18:08 Drug: Aspirin Chewable Tablet 324 mg Route: PO; jl7 18:52 Follow up: Response: No adverse reaction jl7 19:26 Drug: morphine 2 mg Route: IVP; Site: left antecubital; ea 09/15 01:02 Drug: Ativan 1 mg Route: IVP; Site: left antecubital; ea Disposition: 18:17 Co-signature as Attending Physician, Nabil Sher MD I agree with the assessment and kdr plan of care. Disposition: 09/14/20 19:33 Hospitalization ordered by Dale Raines for Observation. Preliminary diagnosis is Chest pain, unspecified. - Bed requested for Telemetry/MedSurg (observation). - Status is Observation. tw2 - Condition is Stable. - Problem is new. - Symptoms have improved. Signatures: Dispatcher [employer] EDMary Whittaker, RN RN dw Nabil Sher MD MD kdr Page, Corey, PA PA cp Bhavya Medeiros RN RN tw2 Eula Guido RN RN jl7 Rosalie Choi RN RN ea Ginger Abbott RN RN ca1 Corrections: (The following items were deleted from the chart) 09/14 16:28 16:21 Social history: Smoking status: Patient denies any tobacco usage or history of. ca1 ca1 : 16:21 Immunization history: Flu vaccine is not up to date. ca1 ca1 19:50 19:33 Hospitalization Ordered by Alec Contreras for Observation. Preliminary diagnosis cp is Chest pain, unspecified. Bed requested for Telemetry/MedSurg (observation). Status is Observation. Condition is Stable. Problem is new. Symptoms have improved. cp 20:28 19:50 09/14/2020 19:33 Hospitalization Ordered by Dale Raines MD for Observation. dw Preliminary diagnosis is Chest pain, unspecified. Bed requested for Telemetry/MedSurg (observation). Status is Observation. Condition is Stable. Problem is new. Symptoms have improved. cp 09/15 15:00 09/14 20:28 09/14/2020 19:33 Hospitalization Ordered by Dale Raines MD for dw Observation. Preliminary diagnosis is Chest pain, unspecified. Bed requested for [facility] ER HOLD. Status is Observation. Condition is Stable. Problem is new. Symptoms have improved. dw 09/15 16:38 15:00 09/14/2020 19:33 Hospitalization Ordered by Dale Raines MD for Observation. tw2 Preliminary diagnosis is Chest pain, unspecified. Bed requested for Telemetry/MedSurg (observation). Status is Observation. Condition is Stable. Problem is new. Symptoms have improved. dw
[2020-09-14] MEDS ORDERED: MORPHINE 4 MG/ML SYR ONE (19:36)
--- NOTE | 2020-09-14 19:47 | RAD REPORT ---
EXAM DESCRIPTION: RAD - Chest Single View - 09/14/2020 6:29 pm CLINICAL HISTORY: CHEST PAIN COMPARISON: Portable January 06 TECHNIQUE: AP portable chest image was obtained 09/14/2020 6:29 pm . FINDINGS: Lungs are clear. Heart and vasculature are normal. No measurable pleural effusion and no p neumothorax. No acute bony abnormality seen. No acute aortic findings suspected. No significant change from comparison study. IMPRESSION: No acute cardiopulmonary process.
--- NOTE | 2020-09-14 20:53 | RAD REPORT ---
EXAM DESCRIPTION: CT - Angio Aorta For Dissection - 09/14/2020 8:02 pm CLINICAL HISTORY: CHEST PAIN COMPARISON: Portable chest same date TECHNIQUE: Dynamically enhanced 3 mm thick images of the chest, abdomen, and upper pelvis were obtai leonard during administration of approximately 150mL Isovue 370 IV contrast. Sagittal and coronal reconst ruction images were generated using MIP and reviewed. Exam utilizes a protocol to evaluate entire cou rse of the aorta. All CT scans are performed using dose optimization technique as appropriate and may include automated exposure control or mA/KV adjustment according to patient size. FINDINGS: Aorta is normal in diameter with no dissection or other acute aortic findings. Reconstruct ion images show no significant findings. Pulmonary arteries are normal as well. No cardiomegaly, pericardial thickening or pericardial effusio n. No mass or infiltrate in the lung parenchyma. No pleural thickening, pleural effusion or pneumothorax . No abnormal mediastinal or hilar mass or lymphadenopathy seen. No chest wall mass or abnormal axillar y lymphadenopathy. Celiac, SMA and renal arteries show no suspicious findings. Solid abdominal viscera and bowel show no significant findings. Liver shows a borderline to mild fatty infiltrated pattern. No mass or abnorm al lymphadenopathy. No free air, free fluid or inflammatory stranding. No urinary bladder abnormality . IMPRESSION: Negative CT scan of the aorta. No other significant findings on chest, abdomen and upper pelvis examination.
[2020-09-14 22:19] LABS: Barbiturates NEGATIVE (NEGATIVE); Benzodiazepines NEGATIVE (NEGATIVE); Cocaine NEGATIVE (NEGATIVE); METHAMPHETAM NEGATIVE (NEGATIVE); Methadone NEGATIVE (NEGATIVE); Opiates NEGATIVE (NEGATIVE); Phencyclidine NEGATIVE (NEGATIVE); THC Cannibis NEGATIVE (NEGATIVE)
--- NOTE | 2020-09-14 22:38 | P.HP ---
Certification for Inpatient Patient admitted to: Observation With expected LOS: <2 Midnights Patient will require the following post-hospital care: None Practitioner: I am a practitioner with admitting privileges, knowledge of patient current condition, hospital course, and medical plan of care. Services: Services provided to patient in accordance with Admission requirements found in Title 42 Section 412.3 of the Code of Federal Regulations Patient History Date of Service: 09/14/20 Primary Care Provider: Thang Reason for admission: chest pain History of Present Illness: Mr. Dela Cruz is a 30 yo male with HTN, depression, and insomnia here today for chest pain. For the past 3 months, he has had severe left sided squeezing chest pain, SOB, and numbness in his left arm and left leg during intercourse every time. 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 Today he had chest pain that progressively worsened, currently a 5/10 after aspirin and morphine. He went shopping and had chest pain, SOB, lightheadedness, and blurry vision. Pain lasts anywhere between 5 and 40 minutes. He reports relief with laying down, aspirin. Pain is exacerbated by any lifting, too much movement. Denies nausea, vomiting, edema, palpitations. Family history of [place] from dad, both grandfathers. Does not smoke. Initial trop negative. Initial EKG normal. CXR without findings. CT dissection without findings. Allergies No Known Allergies Allergy (Unverified 04/15/17 02:20) Home medications list reviewed: No - Past Medical/Surgical History Diabetic: No -: HTN -: depression -: insomnia Past Surgical History: Patient denies surgical history - Family History Father -: Heart disease, Hypertension Notes: [place] Mother -: Hypertension Brother -: Seizures - Social History Smoking Status: Never smoker Alcohol use: No CD- Drugs: No Caffeine use: No Place of Residence: Home Review of Systems General: Sweats, As per HPI Eyes: Vision Change, As per HPI ENT: Unremarkable Respiratory: Shortness of Breath, As per HPI Cardiovascular: Chest Pain, Light Headedness, As per HPI Gastrointestinal: Unremarkable Genitourinary: Unremarkable Musculoskeletal: Unremarkable Integumentary: Unremarkable Neurological: Unremarkable Lymphatics: Unremarkable Physical Examination - Vital Signs Temperature: 97.3 F Blood Pressure: 125/93 Pulse: 102 Respirations: 18 Pulse Ox (%): 99 - Physical Exam General: Alert, In no apparent distress, Oriented x3, Cooperative HEENT: Atraumatic, Normocephalic, PERRLA, Mucous membr. moist/pink, EOMI, Sclerae nonicteric Neck: Supple, 2+ carotid pulse no bruit, JVD not distended, No Thyromegaly, No LAD Respiratory: Clear to auscultation bilaterally, Normal air movement Cardiovascular: No edema, Normal pulses, Regular rate/rhythm, Normal S1 S2, No gallops, No rubs, No murmurs Capillary refill: <2 Seconds Gastrointestinal: Normal bowel sounds, Soft and benign, Non-distended, No ascites, No tenderness, No masses, No rebound, No guarding Musculoskeletal: No clubbing, No swelling, No contractures, No erythema, No tenderness, No warmth Integumentary: No rashes, No breakdown, No significant lesion, No tenderness/swelling, No erythema, No warmth, No cyanosis Neurological: Normal speech, Normal strength at 5/5 x4 extr, Normal tone, Sensa tion intact, Cranial nerves 3-12 intact, Normal affect Lymphatics: No axilla or inguinal lymphadenopathy - Studies Laboratory Data (last 24 hrs) 09/14/20 18:01: PT 11.9, INR 1.03 09/14/20 18:01: WBC 12.70 H, Hgb 15.8, Hct 46.3, Plt Count 353 09/14/20 18:01: Sodium 140, Potassium 4.1, BUN 18, Creatinine 0.99, Glucose 89, Magnesium 2.3, Total Bilirubin 0.5, AST 24, ALT 51, Alkaline Phosphatase 89 Assessment and Plan - Problems (Diagnosis) (1) Chest pain Current Visit: Yes Status: Acute Plan: initial troponin and EKG without findings. cardiology consulted. morphine and nitro PRN for chest pain. TSH/T4, lipid panel, A1c pending. received aspirin in the ER Qualifiers: Chest pain type: unspecified Qualified Code(s): R07.9 - Chest pain, unspecified (2) Hypertension Current Visit: Yes Status: Chronic Plan: currently stable. will reconcile and continue home medications. Qualifiers: Hypertension type: essential hypertension Qualified Code(s): I10 - Essential (primary) hypertension (3) Depression Current Visit: Yes Status: Chronic Plan: stable. will reconcile and continue antidepressant, mood stabilizer, and sleep medication Qualifiers: Depression Type: unspecified Qualified Code(s): F32.9 - Major depressive disorder, single episode, unspecified Discharge Plan: Home Plan to discharge in: 24 Hours - Advance Directives Does patient have a Living Will: No Does patient have a Durable POA for Healthcare: No - Code Status/Comfort Care Code Status Assessed: Yes (full code) Critical Care: No Time Spent Managing Pts Care (In Minutes): 70
[2020-09-15 00:01] VITALS: BMI 34.2
[2020-09-15] MEDS ORDERED: MORPHINE 2 MG/ML SYR IV PRN (00:03)
[2020-09-15] MEDS ORDERED: NITROGLYCERIN 0.4 MG/TAB SL PRN (00:03)
[2020-09-15] MEDS ORDERED: ACETAMINOPHEN 500 MG TAB PO PRN (00:03)
[2020-09-15] MEDS ORDERED: ONDANSETRON 4 MG/2 ML VIAL IV PRN (00:03)
[2020-09-15 01:14] LABS: Thyroid Stimulating Hormone 2.75 uIU/mL (0.360-3.740)
[2020-09-15] MEDS ORDERED: LORazepam 2 MG/ML VIAL ONE (01:15)
[2020-09-15 06:40] LABS: Absolute Lymphocytes (CBC) 3.7 K/uL (0.7-4.9); Basophils % 1.1 % (0-1.3); Hematocrit 43.7 % (39.6-49.0); Lymphocytes % 37.9 % (15.3-44.8); MPV 7.6 fL (7.6-11.3); RBC Red Blood Cell Count 5.18 M/uL (4.33-5.43)
--- NOTE | 2020-09-15 06:45 | EKG ---
Test Date: 2020-09-14 Test Time: 16:42:29 Health Services Rn: JOE MEASUREMENT RESULTS: Intervals: Rate: 98 LA: 122 QRSD: 72 QT: 358 QTc: 457 [place]: P: 34 LA: 122 QRS: 20 T: 15 INTERPRETIVE STATEMENTS: Normal sinus rhythm Normal ECG Compared to ECG 01/22/2018 14:39:40 Sinus bradycardia no longer present Sinus arrhythmia no longer present Electronically Signed On 09-15-20 06:43:56 CDT by Alex Mackenzie
[2020-09-15 07:10] VITALS: TEMP 98.7
[2020-09-15 07:18] LABS: ALT/SGPT 48 U/L (12-78); AST/SGOT 22 U/L (15-37); Albumin 3.6 g/dL (3.4-5.0); Alkaline Phosphatase 74 U/L (45-117); BUN Blood Urea Nitrogen 18 mg/dL (7-18); Bicarbonate 24 mmol/L (21-32); Bilirubin Total 0.6 mg/dL (0.2-1.0); Glucose Level 84 mg/dL (74-106); HDL Cholesterol 35 mg/dL (40-60); LDL Cholesterol, Calculated 155 (<130); Magnesium 2.2 mg/dL (1.8-2.4); Potassium 4.1 mmol/L (3.5-5.1); Protein, Total 7.6 g/dL (6.4-8.2); Sodium Level 141 mmol/L (136-145)
[2020-09-15] MEDS ORDERED: ENOXAPARIN 40 MG/0.4 ML SQ ONE (07:56)
[2020-09-15] MEDS ORDERED: ENOXAPARIN 40 MG/0.4 ML SQ SCH (09:00)
[2020-09-15 09:09] VITALS: O2SAT 96
[2020-09-15] MEDS ORDERED: REGADENOSON 0.4 MG/5 ML SYR IV ONE (09:12)
--- NOTE | 2020-09-15 11:04 | P.PN ---
Subjective Date of Service: 09/15/20 Primary Care Provider: Thang Chief Complaint: chest pain Subjective: No new changes Physical Examination - Vital Signs Temperature: 98.7 F Blood Pressure: 117/101 Pulse: 57 Respirations: 16 Pulse Ox (%): 97 - Physical Exam General: Alert, Oriented x3 HEENT: Atraumatic, Normocephalic Neck: Supple Respiratory: Clear to auscultation bilaterally Cardiovascular: Regular rate/rhythm, Normal S1 S2 Gastrointestinal: Soft and benign Neurological: Normal gait, Normal strength at 5/5 x4 extr, Cranial nerves 3-12 intact - Studies Laboratory Data (last 24 hrs) 09/15/20 06:51: Sodium 141, Potassium 4.1, BUN 18, Creatinine 0.96, Glucose 84, Magnesium 2.2, Total Bilirubin 0.6, AST 22, ALT 48, Alkaline Phosphatase 74, Triglycerides 113, Cholesterol 213 H, HDL Cholesterol 35 L, Cholesterol/HDL Ratio 6.09 09/15/20 06:30: WBC 9.80 D, Hgb 14.8, Hct 43.7, Plt Count 301 09/15/20 00:13: Troponin I < 0.02 09/14/20 18:01: PT 11.9, INR 1.03 09/14/20 18:01: WBC 12.70 H, Hgb 15.8, Hct 46.3, Plt Count 353 09/14/20 18:01: Sodium 140, Potassium 4.1, BUN 18, Creatinine 0.99, Glucose 89, Magnesium 2.3, Total Bilirubin 0.5, AST 24, ALT 51, Alkaline Phosphatase 89 Assessment And Plan - Plan 1.Chest pain-Concerning for musculoskeletal/anxiety related issues. ACS to be r/o. Cardiology evaluation pending. we will monitor. Troponin trend ongoing. 2.Hypertension-we will monitor BP per unit protocol and continue antihypertensive meds. 3.Anxiety-Prn anxiolytics to be continued. Physician Review: Patient Assessed, Agree with Above Assessment and Plan
[2020-09-15] MEDS ORDERED: OXcarbazepine 150 MG TAB PO SCH (13:06)
[2020-09-15] MEDS ORDERED: CITALOPRAM 10 MG TABLET PO SCH (13:07)
[2020-09-15] MEDS ORDERED: ONDANSETRON 4 MG/2 ML VIAL ONE (13:08)
[2020-09-15] MEDS ORDERED: VALSARTAN 40 MG TAB PO SCH (13:30)
--- NOTE | 2020-09-15 14:26 | RAD REPORT ---
EXAM DESCRIPTION: NM - Rest Stress Cardiac Imaging - 09/15/2020 2:21 pm CLINICAL HISTORY: Chest pain. COMPARISON: None. TECHNIQUE: The patient was administered 10.1 mCi of Tc 99m Sestamibi prior to resting SPECT imaging of the heart. The patient was then administered 31.8 mCi of Tc 99m Sestamibi following exercise or ph armacologic stress. Multiplanar SPECT images were reviewed. FINDINGS: There is uniformity of radiotracer uptake involving the entire left ventricular myocardiu m on rest and stress images. The left ventricular ejection fraction equals 50% IMPRESSION: Negative for a myocardial perfusion defect
[2020-09-15] MEDS ORDERED: ACETAMINOPHEN 500 MG TAB ONE (15:21)
[2020-09-15 16:20] VITALS: BP 117/101
--- NOTE | 2020-09-15 19:32 | CON ---
Date of Consultation: 09/15/2020 Reason For Consultation: Chest pain. History Of Present Illness: Mr. Dela Cruz is only 30 years old, has had a history of bipolar disorder, c hronic back pain, attention deficit disorder, hypertension. He came in with substernal midepigastric chest pain that occasionally radiates to the arm, sometimes left arm and sometimes on the right, occ asionally radiates to the neck with some nausea, but no diaphoresis, shortness of breath, PND, orthop manuel, pedal edema, palpitation, or syncope. Past Medical History: As stated above. Allergies: NONE. Review of Systems: Negative. Social History: Negative. Family History: Noncontributory. Medications: Listed by admitting physician. Physical Examination: Vital Signs: Stable, afebrile. HEENT: Negative. Neck: Supple with no bruit. Chest: Clear to auscultation and percussion. Cardiac: Revealed a regular rhythm and rate. No murmurs, gallops, or rubs. Abdomen: Benign. Extremities: Revealed no clubbing, cyanosis, or edema. Diagnostic Data: All within normal limit. Impression And Plan: Atypical chest pain in a very young man with history of hypertension. I think this is most likely to be gastroesophageal in nature. Nevertheless his symptoms are worrisome enough . I think an echocardiogram and a stress Cardiolite or pharmacological stress test would be reasonab le. The patient did complain of some dyspnea on exertion. It would be good to rule out any congesti ve heart failure as well. We will see what those showed before making further decisions. ML/HONORIO Voice ID: [id number] Report ID: [id number]
--- NOTE | 2020-09-15 20:10 | P.DS ---
Admission Date: 09/15/20 Discharge Date: 09/15/20 Primary Care Provider: Thang Disposition: ROUTINE DISCHARGE Discharge Condition: GOOD Reason for Admission: chest pain Consultations: Cardiology - Gurdeep Procedures: Cardiac Imaging: Negative for a myocardial perfusion defect - Problems (1) Chest pain Current Visit: Yes Status: Resolved Qualifiers: Chest pain type: unspecified Qualified Code(s): R07.9 - Chest pain, uns pecified (2) Hypertension Current Visit: Yes Status: Chronic Qualifiers: Hypertension type: essential hypertension Qualified Code(s): I10 - Essential (primary) hypertension (3) Depression Current Visit: Yes Status: Chronic Qualifiers: Depression Type: unspecified Qualified Code(s): F32.9 - Major depressive disorder, single episode, unspecified Brief History of Present Illness: Mr. Dela Cruz is a 30 yo male with HTN, depression, and insomnia here today for chest pain. For the past 3 months, he has had severe left sided squeezing chest pain, SOB, and numbness in his left arm and left leg during intercourse every time. 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 Today he had chest pain that progressively worsened, currently a 5/10 after aspirin and morphine. He went shopping and had chest pain, SOB, lightheadedness, and blurry vision. Pain lasts anywhere between 5 and 40 minutes. He reports relief with laying down, aspirin. Pain is exacerbated by any lifting, too much movement. Denies nausea, vomiting, edema, palpitations. Family history of [place] from dad, both grandfathers. Does not smoke. Initial trop negative. Initial EKG normal. CXR without findings. CT dissection without findings. Hospital Course: Mr. Dela Cruz was admitted for chest pain rule out. All troponins wnl. Normal EKG findings. Consulted Dr. Mackenzie and he was negative for a myocardial perfusion defect. Likely chest pain is gastroesophageal in nature. Per cardiology, patient is safe for discharge. Vital Signs/Physical Exam: Temp Pulse Resp BP Pulse Ox 98.7 F 57 16 117/101 H 97 09/15/20 16:19 09/15/20 16:19 09/15/20 16:19 09/15/20 16:19 09/15/20 16:19 General: Alert, In no apparent distress, Oriented x3, Cooperative HEENT: Atraumatic, Normocephalic, PERRLA, Mucous membr. moist/pink, EOMI, Sclerae nonicteric Neck: Supple, 2+ carotid pulse no bruit, JVD not distended, No Thyromegaly, No LAD Respiratory: Clear to auscultation bilaterally, Normal air movement Cardiovascular: No edema, Normal pulses, Regular rate/rhythm, Normal S1 S2, No gallops, No rubs, No murmurs Capillary refill: <2 Seconds Gastrointestinal: Normal bowel sounds, Soft and benign, Non-distended, No ascite s, No tenderness, No masses, No rebound, No guarding Musculoskeletal: No clubbing, No swelling, No contractures, No erythema, No tenderness, No warmth Integumentary: No rashes, No breakdown, No significant lesion, No tenderness/swelling, No erythema, No warmth, No cyanosis Neurological: Normal gait, Normal speech, Normal strength at 5/5 x4 extr, Normal tone, Sensation intact, Cranial nerves 3-12 intact, Normal affect Lymphatics: No axilla or inguinal lymphadenopathy Laboratory Data at Discharge: WBC 9.80 K/uL (4.3-10.9) D 09/15/20 06:30 Hgb 14.8 g/dL (13.6-17.9) 09/15/20 06:30 Hct 43.7 % (39.6-49.0) 09/15/20 06:30 Plt Count 301 K/uL (152-406) 09/15/20 06:30 PT 11.9 SECONDS (9.5-12.5) 09/14/20 18:01 INR 1.03 09/14/20 18:01 Sodium 141 mmol/L (136-145) 09/15/20 06:51 Potassium 4.1 mmol/L (3.5-5.1) 09/15/20 06:51 BUN 18 mg/dL (7-18) 09/15/20 06:51 Creatinine 0.96 mg/dL (0.55-1.3) 09/15/20 06:51 Glucose 84 mg/dL (74-106) 09/15/20 06:51 Magnesium 2.2 mg/dL (1.8-2.4) 09/15/20 06:51 Total Bilirubin 0.6 mg/dL (0.2-1.0) 09/15/20 06:51 AST 22 U/L (15-37) 09/15/20 06:51 ALT 48 U/L (12-78) 09/15/20 06:51 Alkaline Phosphatase 74 U/L (45-117) 09/15/20 06:51 Troponin I < 0.02 ng/mL (0.0-0.045) 09/15/20 08:45 Triglycerides 113 mg/dL (<150) 09/15/20 06:51 Cholesterol 213 mg/dL (<200) H 09/15/20 06:51 HDL Cholesterol 35 mg/dL (40-60) L 09/15/20 06:51 Cholesterol/HDL Ratio 6.09 09/15/20 06:51 Home Medications: Citalopram [Celexa*] 50 mg PO DAILY tablet 09/15/20 OXcarbazepine [Trileptal*] 300 mg PO BID tab 09/15/20 Valsartan [Diovan*] 40 mg PO DAILY tab 09/15/20 Physician Discharge Instructions: Please continue with your home medications. Your stress test was found to be normal by the edge banding off bearer. Please follow up with your primary care doctor for further evaluation and follow up of laboratory results. Diet: ADA Followup: NONE,NONE [Primary Care Provider] - Time spent managing pt's care (in minutes): 30
--- NOTE | 2020-09-18 08:32 | ECHO ---
HEIGHT: 6 ft 1 in WEIGHT: 260 lb 0 oz DATE OF STUDY: 09/15/[address]: Alex Mackenzie MD 2-DIMENSIONAL: YES M.MODE: YES DOPPLER: YES COLOR FLOW: YES TDS: NO PORTABLE: YES DEFINITY: NO BUBBLE STUDY: NO DIAGNOSIS: CHEST PAIN CARDIAC HISTORY: CATHERIZATION: NO SURGERY: NO PROSTHETIC VALVE: NO PACEMAKER: NO MEASUREMENTS (cm) DIASTOLIC (NORMALS) SYSTOLIC (NORMALS) IVSd 1.0 (0.6-1.2) LA Diam 2.6 (1.9-4.0) LVEF 73% LVIDd 4.2 (3.5-5.7) LVIDs 2.4 (2.0-3.5) %FS 41% LVPWd 1.0 (0.6-1.2) Ao Diam 2.9 (2.0-3.7) 2 DIMENSIONAL ASSESSMENT: RIGHT ATRIUM: NORMAL LEFT ATRIUM: NORMAL RIGHT VENTRICLE: NORMAL LEFT VENTRICLE: NORMAL TRICUSPID VALVE: NORMAL MITRAL VALVE: NORMAL PULMONIC VALVE: NORMAL AORTIC VALVE: NORMAL PERICARDIAL EFFUSION: NONE AORTIC ROOT: NORMAL LEFT VENTRICULAR WALL MOTION: NORMAL DOPPLER/COLOR FLOW: MILD TRICUSPID REGURGITATION. COMMENTS: MILD TRICUSPID REGURGITATION. NORMAL LEFT VENTRICULAR SIZE AND FUNCTION. NO WALL MOTION ABNORMALITY. NO EFFUSION. TECHNOLOGIST: James CANDELARIA
--- NOTE | 2020-09-18 08:50 | TREADPHA ---
DX: CHEST PAIN Date of Study: 09/15/2020 Ht: 6' 1 " Wt: 260 lb 0 oz Consulting Physician: YOHAN MEDICATIONS: LOVENOX, NITROSTAT HISTORY: NO MEDICAL HISTORY. PHYSICIAL EXAMINATION: RESTING B.P.: 128/90 RESTING H.R.: 58 RESTING EKG: SINUS RHYTHM PROTOCOL: LEXISCAN EXERCISE TIME: 3:30 B.P. AT PEAK STRESS: 149/86 IMPRESSION: LEXISCAN STRESS TEST PERFORMED. CARDIOLITE INJECTED PER PROTOCOL. SEE NUCLEAR MEDICINE REPORT. NO SUPRAVENTRICULAR TACHYCARDIA. NO VENTRICULAR TACHYCARDIA. NO ARRHYTHMIAS NOTED. PATIENT TOLERATED WELL.
== END 2020-09-15 20:42 | disposition home or self-care (01) | DRG 392 ==
LOC: ER 16:18 → ERHOLD 19:54 → OBSVTOIN 09-15 08:07 → 2ND 09-15 16:12
PROVIDERS: ADMIT Internal Medicine Nephrology; ATTEND Internal Medicine Nephrology
DX: K21.9 Gastro-esophageal reflux disease without esophagitis (principal); I10 Essential (primary) hypertension; G89.29 Other chronic pain; F32.9 Major depressive disorder, single episode, unspecified; G47.00 Insomnia, unspecified; F41.9 Anxiety disorder, unspecified; M54.9 Dorsalgia, unspecified; Z20.822 Contact with and (suspected) exposure to COVID-19
CPT/HCPCS: 36415; 71045; 71275; 74175; 78452; 80048; 80053; 80061; 80076; 80307; 83036; 83735; 83880; 84439; 84443; 84484; 85025; 85379; 85610; 93005; 93017; 93306; 94760; 96374; 96375; 99285; A9500; G0378; J1650; J2405; J2785; Q9967; U0003

== ENCOUNTER 2020-12-29 01:21 | Emergency (ER) | payer SELFPAY ==
--- NOTE | 2020-12-29 02:35 | EDPHYS ---
Physician Documentation [facility] Name: Theo Dela Cruz Age: 30 yrs Sex: Male : 1990 Arrival Date: 12/29/2020 Time: 01:23 Bed 24 Private MD: REANNA Physician Rick Waldron HPI: 12/29 02:24 This 30 yrs old Male presents to ER via Ambulatory with complaints of patience DECREASED HEARING. 02:24 The patient presents with an injury, pain, swelling, tenderness. The complaints affect patience the right ear and left ear. Onset: The symptoms/episode began/occurred 2 day(s) ago. Modifying factors: The symptoms are alleviated by nothing, the symptoms are aggravated by pulling on ears. Associated signs and symptoms: The patient has no apparent associated signs or symptoms. The patient has not experienced similar symptoms in the past. Historical: - Allergies: No Known Allergies; em - PMHx: ADD/ADHD; Back pain; Bipolar disorder; Chronic pain; Hypertension; em - Immunization history:: Adult Immunizations up to date. - Social history:: Smoking status: Patient denies any tobacco usage or history of. ROS: 02:25 Constitutional: Negative for fever, chills, and weight loss, Eyes: Negative for injury, patience pain, redness, and discharge, Neck: Negative for injury, pain, and swelling, Cardiovascular: Negative for chest pain, palpitations, and edema, Respiratory: Negative for shortness of breath, cough, wheezing, and pleuritic chest pain, Abdomen/GI: Negative for abdominal pain, nausea, vomiting, diarrhea, and constipation, Back: Negative for injury and pain, : Negative for injury, bleeding, discharge, and swelling, MS/Extremity: Negative for injury and deformity, Skin: Negative for injury, rash, and discoloration, Neuro: Negative for headache, weakness, numbness, tingling, and seizure, Psych: Negative for depression, anxiety, suicide ideation, homicidal ideation, and hallucinations, Allergy/Immunology: Negative for hives, rash, and allergies, Endocrine: Negative for neck swelling, polydipsia, polyuria, polyphagia, and marked weight changes. 02:25 ENT: Positive for ear pain. Exam: 02:25 Constitutional: This is a well developed, well nourished patient who is awake, alert, patience and in no acute distress. Head/Face: Normocephalic, atraumatic. Eyes: Pupils equal round and reactive to light, extra-ocular motions intact. Lids and lashes normal. Conjunctiva and sclera are non-icteric and not injected. Cornea within normal limits. Periorbital areas with no swelling, redness, or edema. Neck: Trachea midline, no thyromegaly or masses palpated, and no cervical lymphadenopathy. Supple, full range of motion without nuchal rigidity, or vertebral point tenderness. No Meningismus. Chest/axilla: Normal chest wall appearance and motion. Nontender with no deformity. No lesions are appreciated. Cardiovascular: Regular rate and rhythm with a normal S1 and S2. No gallops, murmurs, or rubs. Normal PMI, no JVD. No pulse deficits. Respiratory: Lungs have equal breath sounds bilaterally, clear to auscultation and percussion. No rales, rhonchi or wheezes noted. No increased work of breathing, no retractions or nasal flaring. Abdomen/GI: Soft, non-tender, with normal bowel sounds. No distension or tympany. No guarding or rebound. No evidence of tenderness throughout. Back: No spinal tenderness. No costovertebral tenderness. Full range of motion. Male : Normal genitalia with no discharge or lesions. Skin: Warm, dry with normal turgor. Normal color with no rashes, no lesions, and no evidence of cellulitis. MS/ Extremity: Pulses equal, no cyanosis. Neurovascular intact. Full, normal range of motion. Neuro: Awake and alert, GCS 15, oriented to person, place, time, and situation. Cranial nerves II-XII grossly intact. Motor strength 5/5 in all extremities. Sensory grossly intact. Cerebellar exam normal. Normal gait. Psych: Awake, alert, with orientation to person, place and time. Behavior, mood, and affect are within normal limits. 02:25 ENT: Ear canal(s): cerumen impaction, that is mild, bilaterally, erythema, that is moderate, bilaterally, Mouth: is normal, no acute changes. Vital Signs: 01:29 BP 152 / 104; Pulse 88; Resp 18; Temp 98.0; Pulse Ox 100% on R/A; Weight 68.04 kg; em Height 6 ft. 1 in. (185.42 cm); Pain 6/10; 01:29 Body Mass Index 19.79 (68.04 kg, 185.42 cm) em MDM: 01:32 Patient medically screened. patience 02:27 Differential diagnosis: otitis externa. Data reviewed: vital signs, nurses notes. Data patience interpreted: surveillance monitor: rate is 88 beats/min, rhythm is regular, Pulse oximetry: on room air is 100 %. Counseling: I had a detailed discussion with the patient and/or guardian regarding: the historical points, exam findings, and any diagnostic results supporting the discharge/admit diagnosis. 12/29 02:23 Order name: Misc. Order: irrigate ears; Complete Time: 02:24 patience Administered Medications: 02:31 Drug: Bactrim (trimethoprim-sulfamethoxazole) (160 mg-800 mg (DS) 1 tablet Route: PO; em 02:31 Drug: LevOfloxacin 750 mg Route: PO; em 02:31 Drug: [place] (HYDROcodone-acetaminophen) 10 mg-325 mg 1 tabs Route: PO; em Disposition Summary: 12/29/20 02:34 Discharge Ordered Location: Home patience Problem: new patience Symptoms: have improved patience Condition: Stable patience Diagnosis - Unspecified otitis externa, left ear patience - Impacted cerumen, bilateral patience Followup: patience - With: Private Physician - When: 2 - 3 days - Reason: Recheck today's complaints, Continuance of care, Re-evaluation by your physician Followup: patience - With: Milena Malone MD - When: 2 - 3 days - Reason: Recheck today's complaints, Continuance of care, Re-evaluation by your physician Discharge Instructions: - Discharge Summary Sheet patience - Earwax Buildup, Adult patience - Ear Drops, Adult patience - Otitis Externa patience - Otitis Externa, [id number] patience Forms: - Medication Reconciliation Form patience - Thank You Letter patience - Antibiotic Education patience - Prescription Opioid Use [facility] Prescriptions: - Ibuprofen 600 mg Oral Tablet - take 1 tablet by ORAL route every 6 hours As needed take with food; 30 tablet; [facility] Refills: 0, Product Selection Permitted - Bactrim DS 800-160 mg Oral Tablet - take 1 tablet by ORAL route every 12 hours for 10 days; 20 tablet; Refills: 0, [facility] Product Selection Permitted - Ciprodex 0.3-0.1 % Otic Drops, Suspension - instill 4 drops by OTIC route every 12 hours for 7 days , for ears ONLY; 1 [facility] Container; Refills: 0, Product Selection Permitted Signatures: Rick Waldron MD MD cha Munoz, Edgar, RN RN em
--- NOTE | 2020-12-29 02:35 | ER ---
Nurse's Notes [facility] Name: Theo Dela Cruz Age: 30 yrs Sex: Male : 1990 Arrival Date: 12/29/2020 Time: : Bed 24 Private MD: Diagnosis: Unspecified otitis externa, left ear;Impacted cerumen, bilateral Presentation: 12/29 01:29 Chief complaint: Patient states: allen. ear pain and decreased hearing for a few days, em denies fever. Coronavirus screen: Client denies travel out of the [place] in the last 14 days. Ebola Screen: Patient negative for fever greater than or equal to 101.5 degrees Fahrenheit, and additional compatible Ebola Virus Disease symptoms Patient denies exposure to infectious person. Patient denies travel to an Ebola-affected area in the 21 days before illness onset. No symptoms or risks identified at this time. Initial Sepsis Screen: Does the patient meet any 2 criteria? No. Patient's initial sepsis screen is negative. Does the patient have a suspected source of infection? No. Patient's initial sepsis screen is negative. Risk Assessment: Do you want to hurt yourself or someone else? Patient reports no desire to harm self or others. Onset of symptoms was December 29, 2020. : Method Of Arrival: Ambulatory em Acuity: CRISTIAN 5 em Historical: - Allergies: No Known Allergies; em - PMHx: : ADD/ADHD; Back pain; Bipolar disorder; Chronic pain; Hypertension; em - Immunization history:: Adult Immunizations up to date. - Social history:: Smoking status: Patient denies any tobacco usage or history of. Screenin:33 Abuse screen: Denies threats or abuse. Nutritional screening: No deficits noted. em Tuberculosis screening: No symptoms or risk factors identified. Fall Risk None identified. Assessment: :33 General: Appears in no apparent distress. comfortable, Behavior is calm, cooperative, em Denies fever. Pain: Complains of pain in right ear and left ear Pain currently is 6 out of 10 on a pain scale. Neuro: Level of Consciousness is awake, alert, obeys commands, Oriented to person, place, time, situation, Appropriate for age. Cardiovascular: Capillary refill < 3 seconds Patient's skin is warm and dry. Respiratory: Airway is patent Respiratory effort is even, unlabored, Respiratory pattern is regular, symmetrical. EENT: Nares are clear Oral mucosa is moist. Derm: Skin is intact, is healthy with good turgor, Skin is pink, warm \T\ dry. Musculoskeletal: Capillary refill < 3 seconds, Range of motion: intact in all extremities. Vital Signs: 01:29 BP 152 / 104; Pulse 88; Resp 18; Temp 98.0; Pulse Ox 100% on R/A; Weight 68.04 kg; em Height 6 ft. 1 in. (185.42 cm); Pain 6/10; 01:29 Body Mass Index 19.79 (68.04 kg, 185.42 cm) em ED Course: 01:23 Patient arrived in ED. es 01:31 Triage completed. em 01:31 Arm band placed on. em 01:32 Rick Waldron MD is Attending Physician. patience 01:33 Edgardo Leija, BRIGIDA is Primary Nurse. em 01:33 Patient has correct armband on for positive identification. Adult w/ patient. em 02:22 Ear irrigation: Route both ears with Other 50/50 saline/hydrogen peroxide mix. amount ds4 250ml Patient tolerated well. 02:32 Milena Malone MD is Referral Physician. patience 02:42 No provider procedures requiring assistance completed. Patient did not have IV access em during this emergency room visit. Administered Medications: 02:31 Drug: Bactrim (trimethoprim-sulfamethoxazole) (160 mg-800 mg (DS) 1 tablet Route: PO; em 02:31 Drug: LevOfloxacin 750 mg Route: PO; em 02:31 Drug: [place] (HYDROcodone-acetaminophen) 10 mg-325 mg 1 tabs Route: PO; em Outcome: 02:34 Discharge ordered by . patience 02:42 Discharged to home ambulatory, with family. em 02:42 Condition: good 02:42 Discharge instructions given to patient, Instructed on discharge instructions, follow up and referral plans. medication usage, Demonstrated understanding of instructions, follow-up care, medications, Prescriptions given X 3. 02:43 Patient left the ED. em Signatures: Rick Waldron MD MD cha Salyer, Edna es Munoz, Edgar, RN RN em Facundo Holliday ds4
[2020-12-29 02:48] VITALS: BP 152/104; TEMP 98; O2SAT 100
[2020-12-29] MEDS ORDERED: SMZ./TMP. 800/160 MG TABLET ONE (02:48)
[2020-12-29] MEDS ORDERED: HYDROCODONE/APAP 10/325 TAB ONE (02:48)
[2020-12-29] MEDS ORDERED: levoFLOXacin 750 MG TAB ONE (02:50)
== END 2020-12-29 02:43 | disposition home or self-care (01) ==
LOC: ER 01:21
DX: H61.23 Impacted cerumen, bilateral (principal); H60.92 Unspecified otitis externa, left ear; I10 Essential (primary) hypertension
CPT/HCPCS: 99283

== ENCOUNTER → 2021-07-07 | Emergency (ER) | payer SELFPAY | LOC: ER 20:40 | DX: Z02.89 Encounter for other administrative examinations (principal) | CPT/HCPCS: 93005 ==

== ENCOUNTER 2021-09-16 10:28 | Emergency (ER) | payer SELFPAY ==
[2021-09-16] MEDS ORDERED: NA CHLORIDE 0.9% 2,000 ML ONE (10:50)
[2021-09-16] MEDS ORDERED: MORPHINE 2 MG/ML SYR ONE (10:50)
[2021-09-16] MEDS ORDERED: FAMOTIDINE 20 MG/2 ML VIAL IV ONE (10:50)
[2021-09-16] MEDS ORDERED: ONDANSETRON 4 MG/2 ML VIAL ONE (10:50)
[2021-09-16 10:53] LABS: Urine Blood Trace-intact (Negative); Urine Glucose Negative (Negative); Urine Protein Negative (Negative); Urine Specific Gravity >=1.030 (1.005-1.030)
[2021-09-16 10:55] LABS: Absolute Lymphocytes (CBC) 3.9 K/uL (0.7-4.9); Hematocrit 46.4 % (39.6-49.0); Lymphocytes % 32.3 % (15.3-44.8); MPV 7.2 fL (7.6-11.3); RBC Red Blood Cell Count 5.51 M/uL (4.33-5.43)
[2021-09-16 11:11] LABS: Albumin 3.8 g/dL (3.4-5.0); Bilirubin Total 0.5 mg/dL (0.2-1.0); Potassium 4.1 mmol/L (3.5-5.1); Protein, Total 7.9 g/dL (6.4-8.2)
--- NOTE | 2021-09-16 11:25 | RAD REPORT ---
EXAM DESCRIPTION: CTAbdomen Pelvis W Contrast - 09/16/2021 11:08 am CLINICAL HISTORY: ABD PAIN COMPARISON: Abdomen Pelvis W Contrast dated 01/22/2018 TECHNIQUE: CT of the abdomen and pelvis was performed. All CT scans are performed using dose optimization technique as appropriate and may include automated exposure control or mA/KV adjustment according to patient size. FINDINGS: Lower chest: No acute abnormality. Liver: No acute abnormality or suspicious lesions. Biliary: No biliary ductal dilatation. Stomach: No significant focal abnormality. Duodenum: No significant focal abnormality. Pancreas: No significant abnormality. Spleen: No significant abnormality. Adrenal: No suspicious lesions. Kidney/ureter: No hydronephrosis. No renal calculi. Retroperitoneum: No retroperitoneal adenopathy. Vascular: No aneurysm. Bowel: No significant focal abnormality. Normal appendix. Peritoneum: No ascites or free air. Bladder: Grossly unremarkable. Reproductive: No adnexal masses. Bones: No acute fracture. Other: n/a IMPRESSION: No acute intra-abdominal or pelvic finding. Normal appendix.
--- NOTE | 2021-09-16 12:35 | EDPHYS ---
Physician Documentation [facility] Name: Theo Dela Cruz Age: 31 yrs Sex: Male : 1990 Arrival Date: 09/16/2021 Time: 10:30 Bed 5 Private MD: REANNA Physician Rick Waldron HPI: 09/16 11:28 This 31 yrs old Male presents to ER via Ambulatory with complaints of patience Vomiting, Abdominal Pain. 11:28 The patient presents to the emergency department with nausea, vomiting, that is patience continuous, abdominal pain, of the right upper quadrant, left upper quadrant, right lower quadrant and left lower quadrant. Onset: The symptoms/episode began/occurred 3 day(s) ago. Possible causes: unknown. The symptoms are aggravated by food , The symptoms are alleviated by nothing. Associated signs and symptoms: The patient has no apparent associated signs or symptoms. Severity of symptoms: At their worst the symptoms were mild moderate in the emergency department the symptoms are unchanged. The patient has experienced similar episodes in the past, a few times. Historical: - Allergies: 10:44 No Known Allergies; ab2 - PMHx: 10:44 ADD/ADHD; Back pain; Bipolar disorder; Chronic pain; Hypertension; ab2 - Immunization history:: Adult Immunizations up to date. - Social history:: Smoking status: unknown. - Family history:: not pertinent. ROS: 11:28 Constitutional: Negative for fever, chills, and weight loss, Eyes: Negative for injury, patience pain, redness, and discharge, ENT: Negative for injury, pain, and discharge, Neck: Negative for injury, pain, and swelling, Cardiovascular: Negative for chest pain, palpitations, and edema, Respiratory: Negative for shortness of breath, cough, wheezing, and pleuritic chest pain, Back: Negative for injury and pain, : Negative for injury, bleeding, discharge, and swelling, MS/Extremity: Negative for injury and deformity, Skin: Negative for injury, rash, and discoloration, Neuro: Negative for headache, weakness, numbness, tingling, and seizure, Psych: Negative for depression, anxiety, suicide ideation, homicidal ideation, and hallucinations, Allergy/Immunology: Negative for hives, rash, and allergies, Endocrine: Negative for neck swelling, polydipsia, polyuria, polyphagia, and marked weight changes, Hematologic/Lymphatic: Negative for swollen nodes, abnormal bleeding, and unusual bruising. 11:28 Abdomen/GI: Positive for abdominal pain, nausea and vomiting, abdominal cramps. Exam: 11:29 Constitutional: This is a well developed, well nourished patient who is awake, alert, patience and in no acute distress. Head/Face: Normocephalic, atraumatic. Eyes: Pupils equal round and reactive to light, extra-ocular motions intact. Lids and lashes normal. Conjunctiva and sclera are non-icteric and not injected. Cornea within normal limits. Periorbital areas with no swelling, redness, or edema. ENT: Nares patent. No nasal discharge, no septal abnormalities noted. Tympanic membranes are normal and external auditory canals are clear. Oropharynx with no redness, swelling, or masses, exudates, or evidence of obstruction, uvula midline. Mucous membranes moist. Neck: Trachea midline, no thyromegaly or masses palpated, and no cervical lymphadenopathy. Supple, full range of motion without nuchal rigidity, or vertebral point tenderness. No Meningismus. Chest/axilla: Normal chest wall appearance and motion. Nontender with no deformity. No lesions are appreciated. Cardiovascular: Regular rate and rhythm with a normal S1 and S2. No gallops, murmurs, or rubs. Normal PMI, no JVD. No pulse deficits. Respiratory: Lungs have equal breath sounds bilaterally, clear to auscultation and percussion. No rales, rhonchi or wheezes noted. No increased work of breathing, no retractions or nasal flaring. Abdomen/GI: Soft, non-tender, with normal bowel sounds. No distension or tympany. No guarding or rebound. No evidence of tenderness throughout. Back: No spinal tenderness. No costovertebral tenderness. Full range of motion. Male : Normal genitalia with no discharge or lesions. Skin: Warm, dry with normal turgor. Normal color with no rashes, no lesions, and no evidence of cellulitis. MS/ Extremity: Pulses equal, no cyanosis. Neurovascular intact. Full, normal range of motion. Neuro: Awake and alert, GCS 15, oriented to person, place, time, and situation. Cranial nerves II-XII grossly intact. Motor strength 5/5 in all extremities. Sensory grossly intact. Cerebellar exam normal. Normal gait. Psych: Awake, alert, with orientation to person, place and time. Behavior, mood, and affect are within normal limits. 11:29 Musculoskeletal/extremity: DVT Exam: No signs of deep vein thrombosis. no pain, no swelling, no tenderness, negative Homans' sign noted on exam, no appreciated bluish discoloration, no erythema, no increased warmth. Vital Signs: 10:42 BP 142 / 108; Pulse 98; Resp 19; Temp 97.4; Pulse Ox 99% on R/A; Weight 113.4 kg; ab2 Height 6 ft. 1 in. (185.42 cm); Pain 10/10; 12:05 BP 130 / 100; Pulse 57; Resp 17; Pulse Ox 97% ; Pain 0/10; jh6 13:07 BP 147 / 110; Pulse 50; Resp 18; Temp 97.8(O); Pulse Ox 100% ; Pain 0/10; jh6 10:42 Body Mass Index 32.98 (113.40 kg, 185.42 cm) ab2 MDM: 10:33 Patient medically screened. [facility] 11:30 Differential diagnosis: Nonspecific abd pain, gastritis, cholecystitis, pancreatitis, patience appendicitis, diverticulitis, viral gastroenteritis, gastroenteritis. Data reviewed: vital signs, nurses notes, lab test result(s), radiologic studies, CT scan. Data interpreted: athletic monitor: not applicable for this patient encounter. rate is 98 beats/min, rhythm is regular, Pulse oximetry: on room air is 99 %. Counseling: I had a detailed discussion with the patient and/or guardian regarding: the historical points, exam findings, and any diagnostic results supporting the discharge/admit diagnosis, lab results, radiology results, the need for outpatient follow up, for definitive care, a family practitioner. 09/16 10:34 Order name: CBC with Diff; Complete Time: 12:33 patience 09/16 10:34 Order name: CMP; Complete Time: 12:33 patience 09/16 10:34 Order name: Lipase; Complete Time: 12:33 patience 09/16 10:34 Order name: CT Abd/Pelvis - IV Contrast Only; Complete Time: 12:33 patience 09/16 10:53 Order name: Urine Dipstick-Ancillary; Complete Time: 12:33 EDMS 09/16 10:34 Order name: IV Saline Lock; Complete Time: 10:48 patience 09/16 10:34 Order name: Labs collected and sent; Complete Time: 10:48 [facility] 09/16 10:34 Order name: Urine Dipstick-Ancillary (obtain specimen); Complete Time: 10:49 [facility] Administered Medications: 10:59 Drug: Pepcid (famotidine) 20 mg Route: IVP; Site: left antecubital; 6 12:01 Follow up: Response: No adverse reaction 6 10:59 Drug: morphine 2 mg Route: IVP; Site: left antecubital; jh6 10:59 Drug: NS 0.9% 1000 ml Route: IV; Rate: 1 bolus; Site: left antecubital; jh6 12:01 Follow up: Response: No adverse reaction 6 10:59 Drug: Zofran (Ondansetron) 4 mg Route: IVP; Site: left antecubital; jh6 12:00 Follow up: Response: Nausea is decreased jh6 11:00 Drug: NS 0.9% 1000 ml Route: IV; Rate: 1 bolus; Site: left antecubital; jh6 13:07 Follow up: IV Status: Completed infusion jh6 13:07 Follow up: IV Status: Completed infusion jh6 Disposition Summary: 09/16/21 12:34 Discharge Ordered Location: Home [facility] Problem: new patience Symptoms: have improved patience Condition: Stable patience Diagnosis - Vomiting patience - Dehydration patience - Abdominal pain, Generalized patience Followup: patience - With: Private Physician - When: 2 - 3 days - Reason: Recheck today's complaints, Continuance of care, Re-evaluation by your physician Followup: patience - With: - When: 2 - 3 days - Reason: Recheck today's complaints, Re-evaluation by your physician Discharge Instructions: - Discharge Summary Sheet patience - Abdominal Pain, Adult patience - Dehydration, Adult patience - Nausea and Vomiting, Adult patience - Nausea and Vomiting, Adult, [id number] patience - Abdominal Pain, Adult, [id number] patience - Rehydration, Adult patience Forms: - Medication Reconciliation Form patience - Thank You Letter patience - Antibiotic Education patience - Prescription Opioid Use patience Prescriptions: - Zofran 4 mg Oral Tablet - take 1 tablet by ORAL route every 12 hours As needed; 20 tablet; Refills: 0, patience Product Selection Permitted - Pepcid 20 mg Oral Tablet - take 1 tablet by ORAL route once daily; 20 tablet; Refills: 0, Product patience Selection Permitted Signatures: Dispatcher [employer] Rick Russo MD MD cha Hastedt, Jennifer RN RN jh6 Kendrick Fuentes
--- NOTE | 2021-09-16 12:35 | ER ---
Nurse's Notes [facility] Name: Theo Dela Cruz Age: 31 yrs Sex: Male : 1990 Arrival Date: 09/16/2021 Time: 10:30 Bed 5 Private MD: Diagnosis: Vomiting;Dehydration;Abdominal pain, Generalized Presentation: 09/16 10:42 Chief complaint: Patient states: "I've been n/v/d and abdominal pain since , my ab2 forced me to come in. Im also extremely dizzy.". Coronavirus screen: Vaccine status: Client denies travel out of the [place] in the last 14 days. At this time, the client does not indicate any symptoms associated with coronavirus-19. Ebola Screen: Patient negative for fever greater than or equal to 101.5 degrees Fahrenheit, and additional compatible Ebola Virus Disease symptoms Patient denies exposure to infectious person. Patient denies travel to an Ebola-affected area in the 21 days before illness onset. No symptoms or risks identified at this time. Initial Sepsis Screen: Does the patient meet any 2 criteria? No. Patient's initial sepsis screen is negative. Does the patient have a suspected source of infection? No. Patient's initial sepsis screen is negative. Risk Assessment: Do you want to hurt yourself or someone else? Patient reports no desire to harm self or others. Onset of symptoms is unknown. 10:42 Method Of Arrival: Ambulatory ab2 10:42 Acuity: CRISTIAN 3 ab2 Triage Assessment: 10:45 General: Appears in no apparent distress. uncomfortable, Behavior is calm, cooperative, ab2 appropriate for age. Pain: Complains of pain in abdomen. GI: Reports lower abdominal pain, upper abdominal pain, diarrhea, nausea, vomiting. Historical: - Allergies: 10:44 No Known Allergies; ab2 - PMHx: 10:44 ADD/ADHD; Back pain; Bipolar disorder; Chronic pain; Hypertension; ab2 - Immunization history:: Adult Immunizations up to date. - Social history:: Smoking status: unknown. - Family history:: not pertinent. Screenin:02 Abuse screen: Denies threats or abuse. Nutritional screening: No deficits noted. jh6 Tuberculosis screening: No symptoms or risk factors identified. Fall Risk IV access (20 points). Assessment: 11:00 General: Appears uncomfortable, Behavior is calm, cooperative. Pain: Complains of pain jh6 in epigastric area Pain currently is 6 out of 10 on a pain scale. Quality of pain is described as burning, crampy. GI: Abdomen is round obese, Bowel sounds present X 4 quads. hyperactive in epigastric area, right upper quadrant, left upper quadrant, right lower quadrant and left lower quadrant Abdomen is tender to palpation in epigastric area. 12:04 Reassessment: Patient and/or family updated on plan of care and expected duration. Pain jh6 level reassessed. Patient is alert, oriented x 3, equal unlabored respirations, skin warm/dry/pink. Patient denies pain at this time. Patient states feeling better. Patient states symptoms have improved. Pain: Denies pain. 13:05 Reassessment: No changes from previously documented assessment. Patient states feeling jh6 better. Pain: Denies pain. Vital Signs: 10:42 BP 142 / 108; Pulse 98; Resp 19; Temp 97.4; Pulse Ox 99% on R/A; Weight 113.4 kg; ab2 Height 6 ft. 1 in. (185.42 cm); Pain 10/10; 12:05 BP 130 / 100; Pulse 57; Resp 17; Pulse Ox 97% ; Pain 0/10; jh6 13:07 BP 147 / 110; Pulse 50; Resp 18; Temp 97.8(O); Pulse Ox 100% ; Pain 0/10; jh6 10:42 Body Mass Index 32.98 (113.40 kg, 185.42 cm) ab2 ED Course: 10:30 Patient arrived in ED. mr 10:33 Rick Waldron MD is Attending Physician. [facility] 10:44 Triage completed. ab2 10:45 Arm band placed on right wrist. ab2 10:48 Inserted saline lock: 20 gauge in right antecubital area, using aseptic technique. mb7 11:00 Brianna Holder RN is Primary Nurse. jh6 11:02 No provider procedures requiring assistance completed. jh6 11:10 CT Abd/Pelvis - IV Contrast Only In Process Unspecified. EDMS 11:13 Patient moved back from radiology. jh6 12:05 Bed in low position. Call light in reach. Side rails up X 1. Adult w/ patient. jh6 12:34 Yoly Desouza MD is Referral Physician. [facility] 13:08 IV discontinued, intact, bleeding controlled, No redness/swelling at site. Pressure jh6 dressing applied. Administered Medications: 10:59 Drug: Pepcid (famotidine) 20 mg Route: IVP; Site: left antecubital; 6 12:01 Follow up: Response: No adverse reaction jh6 10:59 Drug: morphine 2 mg Route: IVP; Site: left antecubital; 6 10:59 Drug: NS 0.9% 1000 ml Route: IV; Rate: 1 bolus; Site: left antecubital; jh6 12:01 Follow up: Response: No adverse reaction jh6 10:59 Drug: Zofran (Ondansetron) 4 mg Route: IVP; Site: left antecubital; 6 12:00 Follow up: Response: Nausea is decreased jh6 11:00 Drug: NS 0.9% 1000 ml Route: IV; Rate: 1 bolus; Site: left antecubital; 6 13:07 Follow up: IV Status: Completed infusion 6 13:07 Follow up: IV Status: Completed infusion 6 Outcome: 12:34 Discharge ordered by . [facility] 13:08 Discharged to home ambulatory. 6 13:08 Condition: good 13:08 Discharge instructions given to patient, family, Instructed on discharge instructions, follow up and referral plans. Demonstrated understanding of instructions, follow-up care, medications, Prescriptions given X 2. 13:13 Patient left the ED. [facility] Signatures: Dispatcher [employer] Rick Russo MD MD cha Rivera, Mary mr Hastedt, Jennifer, RN RN [facility] Angy Lundy Kendrick Ascencio
[2021-09-16 13:41] VITALS: BP 147/110; TEMP 97.8; O2SAT 100
== END 2021-09-16 13:13 | disposition home or self-care (01) ==
LOC: ER 10:28
DX: E86.0 Dehydration (principal); R10.84 Generalized abdominal pain; I10 Essential (primary) hypertension
CPT/HCPCS: 36415; 74177; 80053; 81003; 82565; 83690; 85025; 96361; 96374; 96375; 99284; J2270; J2405; J7030; Q9967

== ENCOUNTER 2021-12-10 12:31 | Emergency (ER) | payer SELFPAY ==
[2021-12-10 12:51] LABS: Absolute Lymphocytes (CBC) 3.5 K/uL (0.7-4.9); Hematocrit 45.3 % (39.6-49.0); Lymphocytes % 35.2 % (15.3-44.8); MPV 7.5 fL (7.6-11.3); RBC Red Blood Cell Count 5.44 M/uL (4.33-5.43)
[2021-12-10 12:59] LABS: Protime INR 1.08
[2021-12-10 13:08] LABS: Albumin 3.9 g/dL (3.4-5.0); Bilirubin Direct 0.1 mg/dL (0-0.2); Bilirubin Total 0.4 mg/dL (0.2-1.0); Potassium 3.8 mmol/L (3.5-5.1); Protein, Total 7.7 g/dL (6.4-8.2); Troponin High Sensitivity 6.4 pg/mL (<58.9)
--- NOTE | 2021-12-10 13:14 | RAD REPORT ---
EXAM DESCRIPTION: RAD - Chest Single View - 12/10/2021 1:06 pm CLINICAL HISTORY: CHEST PAIN COMPARISON: Chest Single View dated 09/14/2020; Chest Single View dated 01/07/2020; Chest Single View dated 04/15/2017 FINDINGS: Lines: None. Lungs: No evidence of edema or pneumonia. Pleural: No significant pleural effusions or pneumothorax. Cardiac: The heart size is within normal limits. Bones: No acute fractures. Other: IMPRESSION: No acute cardiopulmonary disease.
--- NOTE | 2021-12-10 17:27 | ER ---
Nurse's Notes [facility] Name: Theo Dela Cruz Age: 31 yrs Sex: Male : 1990 Arrival Date: 12/10/2021 Time: 12:32 Bed 10 Private MD: Diagnosis: Chest pain, unspecified;Weakness Presentation: 12/10 12:32 Chief complaint: Patient states: I was walking at work, my legs became weak - felt like ld1 jello. 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 Pt reports two previous [place]. Coronavirus screen: At this time, the client does not indicate any symptoms associated with coronavirus-19. Ebola Screen: No symptoms or risks identified at this time. Initial Sepsis Screen: Does the patient meet any 2 criteria? No. Patient's initial sepsis screen is negative. Does the patient have a suspected source of infection? No. Patient's initial sepsis screen is negative. Risk Assessment: Do you want to hurt yourself or someone else? Patient reports no desire to harm self or others. Onset of symptoms was December 10, 2021. 12:32 Method Of Arrival: EMS: [facility] ld1 12:32 Acuity: CRISTIAN 3 ld1 Triage Assessment: 12:33 General: Appears in no apparent distress. comfortable, Behavior is calm, cooperative, ld1 appropriate for age. Pain: Denies pain. EENT: No signs and/or symptoms were reported regarding the EENT system. Neuro: Level of Consciousness is awake, alert, obeys commands, Oriented to person, place, time, situation. Cardiovascular: Capillary refill < 3 seconds Patient's skin is warm and dry. Rhythm is sinus rhythm. Respiratory: Airway is patent Respiratory effort is even, unlabored. GI: Abdomen is round non-distended. : No signs and/or symptoms were reported regarding the genitourinary system. Derm: No signs and/or symptoms reported regarding the dermatologic system. Musculoskeletal: Reports pain in chest Pain is 0 out of 10 on a pain scale. Historical: - Allergies: 12:33 No Known Allergies; ld1 - PMHx: 12:33 ADD/ADHD; Back pain; Bipolar disorder; Chronic pain; Hypertension; Myocardial ld1 infarction; - PSHx: 12:33 None; ld1 - Immunization history:: Adult Immunizations up to date, Client reports having NOT received the Covid vaccine. - Social history:: Smoking status: Patient denies any tobacco usage or history of. Patient uses alcohol, but reports only rare drinking. Screenin:35 Abuse screen: Denies threats or abuse. Denies injuries from another. Nutritional ld1 screening: No deficits noted. Tuberculosis screening: No symptoms or risk factors identified. Fall Risk None identified. Assessment: 12:35 Reassessment: See triage assessment. ld1 Vital Signs: 12:32 BP 143 / 111; Pulse 75; Resp 15; Temp 98.6(O); Pulse Ox 98% on R/A; Weight 120.2 kg; ld1 Height 6 ft. 1 in. (185.42 cm); Pain 0/10; 13:25 BP 144 / 120; Pulse 80; Resp 18; Pulse Ox 100% on R/A; ld1 14:44 BP 143 / 110; Pulse 78; Resp 16; Pulse Ox 99% on R/A; ld1 15:39 BP 141 / 111; Pulse 81; Resp 18; Pulse Ox 100% on R/A; ld1 16:16 BP 135 / 106; Pulse 81; Resp 18; Pulse Ox 100% on R/A; ld1 12:32 Body Mass Index 34.96 (120.20 kg, 185.42 cm) ld1 ED Course: 12:32 Patient arrived in ED. ld1 12:33 Triage completed. ld1 12:33 Arm band placed on right wrist. EKG completed in triage. Results shown to MD. ld1 12:34 Fernando Son[facility] is [facility] 12:34 Rick Waldron MD is Attending Physician. [facility] 12:35 Patient has correct armband on for positive identification. Placed in gown. Bed in low ld1 position. Call light in reach. Side rails up X2. contact center agent on. Pulse ox on. NIBP on. Door closed. Noise minimized. Warm blanket given. 12:35 No provider procedures requiring assistance completed. Maintain EMS IV. Dressing ld1 intact. Good blood return noted. Site clean \\T\\ dry. Gauge \\T\\ site: 20G RAC. Patient maintains SpO2 saturation greater than 95% on room air. 12:36 Karla Hurley RN is Primary Nurse. ld1 12:39 EKG done, by ED staff, reviewed by Rick Waldron MD. em1 12:45 SARS-COV-2 RT PCR (Document "Date of Onset" if Symptomatic) Sent. ld1 13:07 XRAY Chest (1 view) In Process Unspecified. EDMS 16:42 Troponin High Sensitivity: repeat Sent. ld1 17:38 IV discontinued, intact, bleeding controlled, No redness/swelling at site. ld1 Administered Medications: No medications were administered Medication: 12:35 VIS not applicable for this client. ld1 Outcome: 17:26 Discharge ordered by . janie 17:37 Discharged to home ambulatory. ld1 17:37 Condition: stable 17:37 Discharge instructions given to patient, Instructed on discharge instructions, follow up and referral plans. Demonstrated understanding of instructions, follow-up care. 17:38 Patient left the ED. ld1 Signatures: Dispatcher [employer] EDMS Fernando Soni PA PA jmm Martinez, Eric em1 Karla Hurley, RN RN ld1
--- NOTE | 2021-12-10 17:27 | EDPHYS ---
Physician Documentation [facility] Name: Theo Dela Cruz Age: 31 yrs Sex: Male : 1990 Arrival Date: 12/10/2021 Time: 12:32 Bed 10 Private MD: ED Physician Rick Waldron HPI: 12/10 12:35 This 31 yrs old Male presents to ER via EMS with complaints of General Weakness, Chest jmm Pain. 12:35 The patient or guardian reports chest pain that is located primarily in the substernal jmm area. The pain does not radiate. Associated signs and symptoms: Pertinent negatives:. This is a 31 year old male with a history of bipolar, cad, that presents to the ED with complaints of chest pain, weakness beginning while at work just prior to arrival. Patient states symptoms began while at work. Patient states he developed weakness and then subsequently developed chest pain. Pain is now currently resolved. . Historical: - Allergies: 12:33 No Known Allergies; ld1 - PMHx: 12:33 ADD/ADHD; Back pain; Bipolar disorder; Chronic pain; Hypertension; Myocardial ld1 infarction; - PSHx: 12:33 None; ld1 - Immunization history:: Adult Immunizations up to date, Client reports having NOT received the Covid vaccine. - Social history:: Smoking status: Patient denies any tobacco usage or history of. Patient uses alcohol, but reports only rare drinking. ROS: 12:35 Constitutional: Negative for fever, chills, and weight loss, Respiratory: Negative for jmm shortness of breath, cough, wheezing, and pleuritic chest pain. 12:35 Cardiovascular: Positive for chest pain. 12:35 All other systems are negative. Exam: 12:35 Constitutional: This is a well developed, well nourished patient who is awake, alert, jmm and in no acute distress. Head/Face: atraumatic. Eyes: EOMI, no conjunctival erythema appreciated ENT: Moist Mucus Membranes Neck: Trachea midline, Supple Chest/axilla: Normal chest wall appearance and motion. Cardiovascular: Regular rate and rhythm. No edema appreciated Respiratory: Normal respirations, no respiratory distress appreciated Back: Normal ROM Skin: General appearance color normal MS/ Extremity: Moves all extremities, no obvious deformities appreciated, no edema noted to the lower extremities Neuro: Awake and alert Psych: Behavior is normal, Mood is normal, Patient is cooperative and pleasant 12:35 Abdomen/GI: Inspection: abdomen appears normal, Bowel sounds: normal, Palpation: abdomen is soft and non-tender, in all quadrants. Vital Signs: 12:32 BP 143 / 111; Pulse 75; Resp 15; Temp 98.6(O); Pulse Ox 98% on R/A; Weight 120.2 kg; ld1 Height 6 ft. 1 in. (185.42 cm); Pain 0/10; 13:25 BP 144 / 120; Pulse 80; Resp 18; Pulse Ox 100% on R/A; ld1 14:44 BP 143 / 110; Pulse 78; Resp 16; Pulse Ox 99% on R/A; ld1 15:39 BP 141 / 111; Pulse 81; Resp 18; Pulse Ox 100% on R/A; ld1 16:16 BP 135 / 106; Pulse 81; Resp 18; Pulse Ox 100% on R/A; ld1 12:32 Body Mass Index 34.96 (120.20 kg, 185.42 cm) ld1 MDM: 12:35 Patient medically screened. [facility] 17:24 Data reviewed: vital signs, nurses notes. [facility] 17:24 Counseling: I had a detailed discussion with the patient and/or guardian regarding: the [facility] historical points, exam findings, and any diagnostic results supporting the discharge/admit diagnosis, lab results, radiology results, the need for outpatient follow up, to return to the emergency department if symptoms worsen or persist or if there are any questions or concerns that arise at home. ED course: Patient is alert and non toxic in appearance in the ED. Labs unremarkable. Patient advised to follow up with cardiology and otherwise given strict return precautions. Patient understood and agrees with the plan of care. . 12/10 12:35 Order name: Basic Metabolic Panel; Complete Time: 13:16 [facility] 12/10 12:35 Order name: CBC with Diff; Complete Time: 13:01 [facility] 12/10 12:35 Order name: LFT's; Complete Time: 13:16 [facility] 12/10 12:35 Order name: Magnesium; Complete Time: 13:16 [facility] 12/10 12:35 Order name: NT PRO-BNP; Complete Time: 13:16 [facility] 12/10 12:35 Order name: PT-INR; Complete Time: 13:01 [facility] 12/10 12:35 Order name: Troponin HS; Complete Time: 13:16 [facility] 12/10 12:35 Order name: XRAY Chest (1 view); Complete Time: 13:16 [facility] 12/10 12:35 Order name: EKG; Complete Time: 12:36 [facility] 12/10 12:35 Order name: Cardiac monitoring; Complete Time: 12:36 [facility] 12/10 12:35 Order name: EKG - Nurse/Tech; Complete Time: 12:36 [facility] 12/10 12:35 Order name: IV Saline Lock; Complete Time: 12:36 [facility] 12/10 12:36 Order name: SARS-COV-2 RT PCR (Document "Date of Onset" if Symptomatic); Complete Time: [facility] 14:12/10 15:31 Order name: Troponin High Sensitivity: repeat; Complete Time: 17:05 [facility] 12/10 12:35 Order name: Labs collected and sent; Complete Time: 12:36 [facility] 12/10 12:35 Order name: O2 Per Protocol; Complete Time: 12:36 [facility] 12/10 12:35 Order name: O2 Sat Monitoring; Complete Time: 12:36 [facility] Administered Medications: No medications were administered Disposition Summary: 12/10/21 17:26 Discharge Ordered Location: Home [facility] Condition: Stable [facility] Diagnosis - Chest pain, unspecified [facility] - Weakness [facility] Followup: [facility] - With: Private Physician - When: 2 - 3 days - Reason: Recheck today's complaints, Continuance of care, Re-evaluation by your physician Discharge Instructions: - Discharge Summary Sheet [facility] - Nonspecific Chest Pain, Adult [facility] Forms: - Medication Reconciliation Form [facility] - Thank You Letter [facility] - Antibiotic Education [facility] - Prescription Opioid Use [facility] Signatures: Dispatcher [employer] Fernando Schmitt PA PA jmm Dibbern, Lauren, RN RN ld1
[2021-12-10 17:47] VITALS: TEMP 98.6
[2021-12-10 17:52] VITALS: O2SAT 100
[2021-12-10 17:54] VITALS: BP 135/106
--- NOTE | 2021-12-12 07:27 | EKG ---
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
== END 2021-12-10 17:38 | disposition home or self-care (01) ==
LOC: ER 12:31
DX: R07.9 Chest pain, unspecified (principal); R53.1 Weakness; I10 Essential (primary) hypertension
CPT/HCPCS: 36415; 71045; 80048; 80076; 83735; 83880; 84484; 85025; 85610; 93005; 99285; U0003

== ENCOUNTER 2022-07-10 18:41 | Emergency (ER) | payer SELFPAY ==
[2022-07-10] MEDS ORDERED: NA CHLORIDE 0.9% 1,000 ML ONE (19:40)
[2022-07-10 19:47] LABS: Absolute Lymphocytes (CBC) 2.7 K/uL (0.7-4.9); Hematocrit 41.6 % (39.6-49.0); Lymphocytes % 31.6 % (15.3-44.8); MPV 7.4 fL (7.6-11.3); RBC Red Blood Cell Count 4.95 M/uL (4.33-5.43)
[2022-07-10 20:03] LABS: Albumin 3.6 g/dL (3.4-5.0); Bilirubin Total 0.6 mg/dL (0.2-1.0); Protein, Total 7.2 g/dL (6.4-8.2)
[2022-07-10 20:35] LABS: SARS-COV-2 RT PCR NEGATIVE (NEGATIVE)
--- NOTE | 2022-07-10 20:40 | EDPHYS ---
Physician Documentation [facility] Name: Theo Dela Cruz Age: 32 yrs Sex: Male : 1990 Arrival Date: 07/10/2022 Time: 18:45 Bed 15 Private MD: ED Physician Rick Waldron HPI: 07/10 19:24 This 32 yrs old Male presents to ER via Ambulatory with complaints of Flu Symptoms. snw 19:24 The patient or guardian reports cough, flu symptoms, low-grade fever, myalgias, no snw appetite. Onset: The symptoms/episode began/occurred 3 day(s) ago, and became persistent. Severity of symptoms: At their worst the symptoms were moderate in the emergency department the symptoms are unchanged. The patient has not experienced similar symptoms in the past, but family has similar symptoms, spouse, son. It is unknown whether or not the patient has recently seen a physician. Historical: - Allergies: 19:01 No Known Allergies; iw - PMHx: 19:01 ADD/ADHD; Back pain; Bipolar disorder; Chronic pain; Hypertension; Myocardial iw infarction; - Immunization history:: Client reports having NOT received the Covid vaccine. - Social history:: Smoking status: Patient denies any tobacco usage or history of. ROS: 19:23 Eyes: Negative for injury, pain, redness, and discharge, ENT: Negative for injury, snw pain, and discharge, Neck: Negative for injury, pain, and swelling, Cardiovascular: Negative for chest pain, palpitations, and edema, Respiratory: Negative for shortness of breath, cough, wheezing, and pleuritic chest pain. 19:23 Back: Negative for injury and pain, : Negative for injury, bleeding, discharge, and swelling, MS/Extremity: Negative for injury and deformity, Skin: Negative for injury, rash, and discoloration, Neuro: Negative for headache, weakness, numbness, tingling, and seizure. 19:23 Constitutional: Positive for body aches, fatigue, malaise, poor PO intake. 19:23 Abdomen/GI: Positive for abdominal pain, nausea, vomiting. Exam: 19:23 Head/Face: Normocephalic, atraumatic. Eyes: Pupils equal round and reactive to light, snw extra-ocular motions intact. Lids and lashes normal. Conjunctiva and sclera are non-icteric and not injected. Cornea within normal limits. Periorbital areas with no swelling, redness, or edema. ENT: Nares patent. No nasal discharge, no septal abnormalities noted. Tympanic membranes are normal and external auditory canals are clear. Oropharynx with no redness, swelling, or masses, exudates, or evidence of obstruction, uvula midline. Mucous membranes moist. Neck: Trachea midline, no thyromegaly or masses palpated, and no cervical lymphadenopathy. Supple, full range of motion without nuchal rigidity, or vertebral point tenderness. No Meningismus. Chest/axilla: Normal chest wall appearance and motion. Nontender with no deformity. No lesions are appreciated. Cardiovascular: Regular rate and rhythm with a normal S1 and S2. No gallops, murmurs, or rubs. Normal PMI, no JVD. No pulse deficits. Respiratory: Lungs have equal breath sounds bilaterally, clear to auscultation and percussion. No rales, rhonchi or wheezes noted. No increased work of breathing, no retractions or nasal flaring. Abdomen/GI: Soft, non-tender, with normal bowel sounds. No distension or tympany. No guarding or rebound. No evidence of tenderness throughout. Back: No spinal tenderness. No costovertebral tenderness. Full range of motion. MS/ Extremity: Pulses equal, no cyanosis. Neurovascular intact. Full, normal range of motion. Neuro: Awake and alert, GCS 15, oriented to person, place, time, and situation. Cranial nerves II-XII grossly intact. Motor strength 5/5 in all extremities. Sensory grossly intact. Cerebellar exam normal. Normal gait. Psych: Awake, alert, with orientation to person, place and time. Behavior, mood, and affect are within normal limits. 19:23 Constitutional: The patient appears alert, anxious, obese, uncomfortable. 19:23 Skin: Appearance: normal except for affected area, Color: pale. Vital Signs: 19:00 BP 134 / 109; Pulse 70; Resp 16; Temp 97.9; Pulse Ox 100% on R/A; Weight 102.06 kg; iw Height 6 ft. 1 in. (185.42 cm); 21:07 BP 116 / 84; Pulse 52; Resp 16; Pulse Ox 99% on R/A; jb4 19:00 Body Mass Index 29.68 (102.06 kg, 185.42 cm) iw MDM: 19:08 Patient medically screened. patience 19:24 Differential diagnosis: viral Infection, bacterial infection, URI, bronchitis, snw pneumonia. Data reviewed: vital signs, nurses notes. Counseling: I had a detailed discussion with the patient and/or guardian regarding: the historical points, exam findings, and any diagnostic results supporting the discharge/admit diagnosis, the presence of at least one elevated blood pressure reading (>120/80) during this emergency department visit, lab results. 07/10 19:18 Order name: CBC with Diff; Complete Time: 20:08 snw 07/10 19:18 Order name: CMP; Complete Time: 20:08 snw 07/10 19:18 Order name: Lipase; Complete Time: 20:08 snw 07/10 19:18 Order name: COVID-19/FLU A+B; Complete Time: 20:37 snw 07/10 19:18 Order name: IV Saline Lock; Complete Time: 19:41 snw 07/10 19:18 Order name: Labs collected and sent; Complete Time: 19:41 snw Administered Medications: 19:56 Drug: NS 0.9% 1000 ml Route: IV; Rate: 1 bolus; Site: right antecubital; jb4 20:45 Follow up: Response: No adverse reaction; IV Status: Completed infusion; IV Intake: jb4 1000ml 21:06 Drug: Decadron - Dexamethasone 10 mg Route: IVP; Site: right antecubital; jb4 21:06 Follow up: Response: Medication administered at discharge. jb4 Disposition: 07/11 12:34 Co-signature as Attending Physician, Nabil Sher MD I agree with the assessment and kdr plan of care. Disposition Summary: 07/10/22 20:39 Discharge Ordered Location: Home snw Condition: Stable snw Diagnosis - Acute upper respiratory infection, unspecified snw Followup: snw - With: Emergency Department - When: As needed - Reason: Worsening of condition Followup: snw - With: Private Physician - When: 5 - 6 days - Reason: Recheck today's complaints, Continuance of care, Re-evaluation by your physician Discharge Instructions: - Discharge Summary Sheet snw - Upper Respiratory Infection, Adult snw Forms: - Work release form snw - Medication Reconciliation Form snw - Thank You Letter snw - Antibiotic Education snw - Prescription Opioid Use snw Prescriptions: - Zyrtec 10 mg Oral Tablet - take 1 tablet by ORAL route once daily As needed; 20 tablet; Refills: 0, snw Product Selection Permitted - Pepcid 20 mg Oral Tablet - take 1 tablet by ORAL route once daily; 20 tablet; Refills: 0, Product snw Selection Permitted Signatures: Dispatcher [employer] EDRick Carmen MD MD cha Rittger, Kevin, MD MD kdr Waters, Shelly, SAND FILLER-C SAND FILLER-Csnw Aretha Talley, BRIGIDA RN iw Vladimir Cordoba RN RN jb4
--- NOTE | 2022-07-10 20:40 | ER ---
Nurse's Notes [facility] Name: Theo Dela Cruz Age: 32 yrs Sex: Male : 1990 Arrival Date: 07/10/2022 Time: 18:45 Bed 15 Private MD: Diagnosis: Acute upper respiratory infection, unspecified Presentation: 07/10 19:00 Chief complaint: Patient states: vomiting since Friday , today I felt fatigued like I iw couldn;t move, no strength when trying to walk, feels hot and cold, intermittent fever. Coronavirus screen: Client presents with at least one sign or symptom that may indicate coronavirus-19. Ebola Screen: Patient negative for fever greater than or equal to 101.5 degrees Fahrenheit, and additional compatible Ebola Virus Disease symptoms Patient denies exposure to infectious person. Patient denies travel to an Ebola-affected area in the 21 days before illness onset. No symptoms or risks identified at this time. Initial Sepsis Screen: Does the patient meet any 2 criteria? No. Patient's initial sepsis screen is negative. Does the patient have a suspected source of infection? No. Patient's initial sepsis screen is negative. Risk Assessment: Do you want to hurt yourself or someone else? Patient reports no desire to harm self or others. Onset of symptoms was July 07, 2022. 19:00 Method Of Arrival: Ambulatory iw 19:00 Acuity: CRISTIAN 3 iw Historical: - Allergies: 19:01 No Known Allergies; iw - PMHx: 19:01 ADD/ADHD; Back pain; Bipolar disorder; Chronic pain; Hypertension; Myocardial iw infarction; - Immunization history:: Client reports having NOT received the Covid vaccine. - Social history:: Smoking status: Patient denies any tobacco usage or history of. Screenin:02 [facility] ED Fall Risk Assessment (Adult) History of falling in the last 3 months, jb4 including since admission No falls in past 3 months (0 pts). Abuse screen: Denies threats or abuse. Nutritional screening: No deficits noted. Tuberculosis screening: No symptoms or risk factors identified. Assessment: 19:02 General: Appears in no apparent distress. uncomfortable, Behavior is calm, cooperative, jb4 appropriate for age. Pain: Denies pain. Neuro: Level of Consciousness is awake, alert, obeys commands, Oriented to person, place, time, situation. Cardiovascular: Patient's skin is warm and dry. Respiratory: Airway is patent Respiratory effort is even, unlabored, Respiratory pattern is regular, symmetrical. GI: Reports nausea, vomiting. : No signs and/or symptoms were reported regarding the genitourinary system. EENT: No signs and/or symptoms were reported regarding the EENT system. Derm: Skin is intact, Skin is pink, warm \T\ dry. Musculoskeletal: Circulation, motion, and sensation intact. Range of motion: intact in all extremities. 20:00 Reassessment: Patient appears in no apparent distress at this time. Patient and/or jb4 family updated on plan of care and expected duration. Pain level reassessed. Patient is alert, oriented x 3, equal unlabored respirations, skin warm/dry/pink. 21:00 Reassessment: Patient appears in no apparent distress at this time. Patient and/or jb4 family updated on plan of care and expected duration. Pain level reassessed. Patient is alert, oriented x 3, equal unlabored respirations, skin warm/dry/pink. Vital Signs: 19:00 BP 134 / 109; Pulse 70; Resp 16; Temp 97.9; Pulse Ox 100% on R/A; Weight 102.06 kg; iw Height 6 ft. 1 in. (185.42 cm); 21:07 BP 116 / 84; Pulse 52; Resp 16; Pulse Ox 99% on R/A; jb4 19:00 Body Mass Index 29.68 (102.06 kg, 185.42 cm) iw ED Course: 18:45 Patient arrived in ED. rg4 18:51 Apple Beebe [facility]-C [facility] snw 18:51 Nabil Sher MD is Attending Physician. snw 19:01 Triage completed. iw 19:02 Arm band placed on. iw 19:02 Patient has correct armband on for positive identification. Bed in low position. Call jb4 light in reach. Side rails up X 1. 19:08 Attending Physician role handed off by Nabil Sher MD patience 19:08 Rick Waldron MD is Attending Physician. patience 19:10 Vladimir Cordoba, BRIGIDA is Primary Nurse. jb4 19:30 Initial lab(s) drawn, by id, sent to lab. Inserted saline lock: 20 gauge in right jb4 antecubital area, using aseptic technique. Blood collected. 19:41 Lipase Sent. jb4 19:41 CMP Sent. jb4 19:41 CBC with Diff Sent. jb4 19:41 COVID-19/FLU A+B Sent. jb4 21:11 No provider procedures requiring assistance completed. IV discontinued, intact, jb4 bleeding controlled, No redness/swelling at site. Pressure dressing applied. Administered Medications: 19:56 Drug: NS 0.9% 1000 ml Route: IV; Rate: 1 bolus; Site: right antecubital; jb4 20:45 Follow up: Response: No adverse reaction; IV Status: Completed infusion; IV Intake: jb4 1000ml 21:06 Drug: Decadron - Dexamethasone 10 mg Route: IVP; Site: right antecubital; jb4 21:06 Follow up: Response: Medication administered at discharge. jb4 Medication: 21:00 VIS not applicable for this client. jb4 Intake: 20:45 IV: 1000ml; Total: 1000ml. jb4 Outcome: 20:39 Discharge ordered by . snw 21:11 Discharged to home ambulatory. jb4 21:11 Condition: stable 21:11 Discharge instructions given to patient, Instructed on discharge instructions, follow up and referral plans. medication usage, Demonstrated understanding of instructions, follow-up care, medications, Prescriptions given X 2. 21:11 Patient left the ED. jb4 Signatures: Rick Waldron MD MD cha Waters, Shelly, COMMERCIAL PROPERTY ADMINISTRATOR-C COMMERCIAL PROPERTY ADMINISTRATOR-Csnw Aretha Talley, RN Sayda Peralta rg4 Vladimir Cordoba RN RN jb4
[2022-07-10] MEDS ORDERED: dexAMETHasone 10 MG/ML VIAL ONE (20:56)
[2022-07-10 21:46] VITALS: TEMP 97.9
[2022-07-10 21:47] VITALS: BP 116/84; O2SAT 99
== END 2022-07-10 21:11 | disposition home or self-care (01) ==
LOC: ER 18:41
DX: J06.9 Acute upper respiratory infection, unspecified (principal); Z20.822 Contact with and (suspected) exposure to COVID-19
CPT/HCPCS: 0240U; 36415; 80053; 83690; 85025; 96361; 96374; 99284; J1100; J7030

== ENCOUNTER 2022-08-28 02:19 | Emergency (ER) | payer SELFPAY ==
[2022-08-28] MEDS ORDERED: ONDANSETRON 4 MG (ODT) TAB ONE (02:43)
[2022-08-28 03:28] LABS: SARS-COV-2 RT PCR NEGATIVE (NEGATIVE)
[2022-08-28 04:59] VITALS: TEMP 98
[2022-08-28 05:01] VITALS: BP 122/83; O2SAT 98
--- NOTE | 2022-08-28 12:22 | RAD REPORT ---
EXAM DESCRIPTION: XR Chest, 1 View CLINICAL HISTORY: The patient is 32 years old and is Male; FEVER TECHNIQUE: Single view of the chest. COMPARISON: No relevant prior studies available. FINDINGS: Lungs: No pulmonary vascular congestion or consolidation. Pleural space: Unremarkable. No pneumothorax. Heart: Unremarkable. No cardiomegaly. Mediastinum: Unremarkable. Bones/joints: No acute fracture visualized. Upper abdomen: No free air in the visualized upper abdomen. IMPRESSION: No acute cardiopulmonary process identified. Electronically signed by: Milena Huber MD 08/28/2022 4:11 AM SVP BUSINESS DEVELOPMENT Due to temporary technical issues with the PACS/Fluency reporting system, reports are being signed by the in house radiologists without review as a courtesy to insure prompt reporting. The interpreting radiologist is fully responsible for the content of the report.
--- NOTE | 2022-09-13 15:28 | ER ---
Nurse's Notes [facility] Name: Theo Dela Cruz Age: 32 yrs Sex: Male : 1990 Arrival Date: 08/28/2022 Time: 02:25 Bed 13 Private MD: Diagnosis: Viral illness Presentation: 08/28 02:35 Chief complaint: Patient states: he has had fever x 2 days high was 102 with vomiting bb tonight and cough and congestion x 5 days. Coronavirus screen: Client presents with at least one sign or symptom that may indicate coronavirus-19. Ebola Screen: No symptoms or risks identified at this time. Initial Sepsis Screen: Does the patient meet any 2 criteria? No. Patient's initial sepsis screen is negative. Does the patient have a suspected source of infection? No. Patient's initial sepsis screen is negative. Risk Assessment: Do you want to hurt yourself or someone else? Patient reports no desire to harm self or others. Onset of symptoms was August 2022. 02:35 Method Of Arrival: Ambulatory bb 02:35 Acuity: CRISTIAN 4 bb Historical: - Allergies: 02:37 No Known Allergies; bb - Home Meds: 02:37 vitamins [Active]; bb - PMHx: 02:37 ADD/ADHD; Back pain; Bipolar disorder; Chronic pain; Hypertension; Myocardial bb infarction; - PSHx: 02:37 None; bb - Immunization history:: Client reports having NOT received the Covid vaccine. - Social history:: Smoking status: Reported history of juuling and/or vaping. Screenin:40 [facility] ED Fall Risk Assessment (Adult) History of falling in the last 3 months, ha1 including since admission No falls in past 3 months (0 pts) Confusion or Disorientation No (0 pts) Intoxicated or Sedated No (0 pts) Impaired Gait No (0 pts) Mobility Assist Device Used No (0 pt) Altered Elimination No (0 pt) Score/Fall Risk Level 0 - 2 = Low Risk Oriented to surroundings, Maintained a safe environment, Educated pt \T\ family on fall prevention, incl call for assistance when getting out of bed. Abuse screen: Denies threats or abuse. Denies injuries from another. Nutritional screening: No deficits noted. Tuberculosis screening: No symptoms or risk factors identified. Assessment: 02:40 General: Appears uncomfortable, Behavior is calm, cooperative. Pain: Complains of pain ha1 in throat Pain does not radiate. Pain at worst was 10 out of 10 on a pain scale. Quality of pain is described as burning. Neuro: Level of Consciousness is awake, alert, obeys commands, Oriented to person, place, time, situation. Cardiovascular: Capillary refill < 3 seconds Patient's skin is warm and dry. Respiratory: Reports cough that is productive. GI: Abdomen is round non-distended, Bowel sounds present X 4 quads. Reports nausea. : No signs and/or symptoms were reported regarding the genitourinary system. Derm: Skin is pink, warm \T\ dry. Musculoskeletal: Circulation, motion, and sensation intact. Range of motion: intact in all extremities. 03:40 Reassessment: Patient and/or family updated on plan of care and expected duration. Pain ha1 level reassessed. Patient is alert, oriented x 3, equal unlabored respirations, skin warm/dry/pink. 04:40 Reassessment: Patient and/or family updated on plan of care and expected duration. Pain ha1 level reassessed. Patient is alert, oriented x 3, equal unlabored respirations, skin warm/dry/pink. Vital Signs: 02:35 BP 142 / 93; Pulse 75; Resp 18 S; Temp 98(O); Pulse Ox 99% on R/A; Weight 113.4 kg (R); bb Height 6 ft. 1 in. (R); 03:40 BP 126 / 76; Pulse 72; Resp 16 S; Pulse Ox 99% on R/A; ha1 04:40 BP 122 / 83; Pulse 70; Resp 16 S; Pulse Ox 98% on R/A; ha1 02:35 Body Mass Index 32.98 (113.40 kg, 185.42 cm) bb ED Course: 02:25 Patient arrived in ED. jj6 02:33 Viridiana Rodriguez FNP-C [facility]. kb 02:34 Óscar Caldwell MD is Attending Physician. kb 02:37 Triage completed. bb 02:37 Arm band placed on Patient placed in an exam room, on a stretcher, on pulse oximetry. bb 02:40 Patient has correct armband on for positive identification. Bed in low position. Call ha1 light in reach. Side rails up X 1. 03:12 Franchesca Shell, RN is Primary Nurse. ha1 04:04 XRAY Chest (1 view) In Process Unspecified. EDMS 04:45 No provider procedures requiring assistance completed. Patient did not have IV access ha1 during this emergency room visit. Administered Medications: 02:45 Drug: Ondansetron PO 4 mg Route: PO; ll3 03:10 Follow up: Response: No adverse reaction; Nausea is decreased ha1 Medication: 04:45 VIS not applicable for this client. ha1 Outcome: 04:28 Discharge ordered by . sp3 04:46 Discharged to home ambulatory. ha1 04:46 Condition: stable 04:46 Discharge instructions given to patient, Instructed on discharge instructions, follow up and referral plans. medication usage, Demonstrated understanding of instructions, follow-up care, medications, Prescriptions given X 1. 04:48 Patient left the ED. ha1 Signatures: Dispatcher [employer] EDDC Viridiana Rodriguez, REPOSSESSION AGENT-C REPOSSESSION AGENT-Zora Gregorio RN RN Óscar Ma MD MD sp3 Brianna Moore6 Catracho Morataya RN RN 3 Franchesca Shell, BRIGIDA RN ha1 Corrections: (The following items were deleted from the chart) 02:37 02:37 Home Meds: None; adama galan
--- NOTE | 2022-09-13 15:28 | EDPHYS ---
Physician Documentation [facility] Name: Theo Dela Cruz Age: 32 yrs Sex: Male : 1990 Arrival Date: 08/28/2022 Time: 02:25 Bed 13 Private MD: ED Physician Óscar Caldwell HPI: 08/28 02:34 This 32 yrs old Male presents to ER via Unassigned with complaints of Fever, Cough. kb 02:34 The patient or guardian reports cough, that is intermittent, described as mild, kb described as moderate, flu symptoms, low-grade fever, myalgias. Onset: The symptoms/episode began/occurred 5 day(s) ago. Severity of symptoms: At their worst the symptoms were moderate, in the emergency department the symptoms are unchanged. Modifying factors: The symptoms are alleviated by nothing, the symptoms are aggravated by nothing. Associated signs and symptoms: Pertinent positives: fever, rhinorrhea, vomiting. The patient has not experienced similar symptoms in the past. The patient has not recently seen a physician. Historical: - Allergies: 02:37 No Known Allergies; bb - Home Meds: 02:37 vitamins [Active]; bb - PMHx: 02:37 ADD/ADHD; Back pain; Bipolar disorder; Chronic pain; Hypertension; Myocardial bb infarction; - PSHx: 02:37 None; bb - Immunization history:: Client reports having NOT received the Covid vaccine. - Social history:: Smoking status: Reported history of juuling and/or vaping. ROS: 02:34 Cardiovascular: Negative for chest pain, palpitations, and edema. kb 02:34 Constitutional: Positive for fatigue, fever, malaise. 02:34 ENT: Positive for sinus congestion. 02:34 Respiratory: Positive for cough. 02:34 Abdomen/GI: Positive for nausea and vomiting. 02:34 All other systems are negative. Exam: 02:34 Constitutional: This is a well developed, well nourished patient who is awake, alert, kb and in no acute distress. Head/Face: Normocephalic, atraumatic. ENT: Moist Mucous membranes Cardiovascular: Regular rate and rhythm with a normal S1 and S2. No gallops, murmurs, or rubs. No pulse deficits. Respiratory: Respirations even and unlabored. No increased work of breathing. Talking in full sentences Abdomen/GI: Soft, non-tender. No distention Skin: Warm, dry with normal turgor. Normal color. MS/ Extremity: Pulses equal, no cyanosis. Neurovascular intact. Full, normal range of motion. Neuro: Awake and alert, GCS 15, oriented to person, place, time, and situation. Moves all extremities. Normal gait. Vital Signs: 02:35 BP 142 / 93; Pulse 75; Resp 18 S; Temp 98(O); Pulse Ox 99% on R/A; Weight 113.4 kg (R); bb Height 6 ft. 1 in. (R); 03:40 BP 126 / 76; Pulse 72; Resp 16 S; Pulse Ox 99% on R/A; ha1 04:40 BP 122 / 83; Pulse 70; Resp 16 S; Pulse Ox 98% on R/A; ha1 02:35 Body Mass Index 32.98 (113.40 kg, 185.42 cm) bb MDM: 02:33 Patient medically screened. kb 02:35 Differential Diagnosis: Bronchitis Influenza Upper Respiratory Infection Other COVID. kb Data reviewed: vital signs, nurses notes. Test considered but Not performed: X-ray: Chest x-ray considered but lungs are clear bilaterally, respirations even and unlabored, O2 sat 99% on room air.. ED course: Patient is a 32-year-old male who presents for cough and congestion for 5 days, fever for 2 days and vomiting that began tonight. Reports temperature max of 102. On exam, lungs clear bilaterally, respirations even and unlabored, no abdominal tenderness. Patient is nontoxic in appearance. COVID, flu and strep test ordered.. 08/28 02:27 Order name: COVID-19/FLU A+B; Complete Time: 04:21 kb 08/28 02:34 Order name: Strep; Complete Time: 04:21 kb 08/28 03:08 Order name: Throat Culture EDMS 08/28 03:37 Order name: XRAY Chest (1 view) bb Administered Medications: 02:45 Drug: Ondansetron PO 4 mg Route: PO; ll3 03:10 Follow up: Response: No adverse reaction; Nausea is decreased ha1 Disposition: 04:27 Co-signature as Attending Physician, Óscar Caldwell MD. sp3 Disposition Summary: 08/28/22 04:28 Discharge Ordered Location: Home sp3 Condition: Stable sp3 Diagnosis - Viral illness sp3 Followup: sp3 - With: Private Physician - When: Upon discharge from the Emergency Department - Reason: Further diagnostic work-up Discharge Instructions: - Discharge Summary Sheet sp3 - Viral Illness, Adult sp3 Forms: - Work release form sp3 - Medication Reconciliation Form sp3 - Thank You Letter sp3 - Antibiotic Education sp3 - Prescription Opioid Use sp3 Prescriptions: - ondansetron 8 mg Oral tablet,disintegrating - take 1 tablet by ORAL route every 12 hours; 20 tablet; Refills: 0, Product sp3 Selection Permitted Signatures: Dispatcher [employer] EDMS Viridiana Rodriguez, SHIV-C Zora Marie RN RN bb Óscar Caldwell MD MD 3 Catracho Morataya RN RN 3 Franchesca Shell RN ha1 Corrections: (The following items were deleted from the chart) 02:37 02:37 Home Meds: None; adama galan
== END 2022-08-28 04:48 | disposition home or self-care (01) ==
LOC: ER 02:19
DX: B34.9 Viral infection, unspecified (principal); Z20.822 Contact with and (suspected) exposure to COVID-19
CPT/HCPCS: 0240U; 71045; 87070; 87081; 99284; Q0162

== ENCOUNTER 2022-10-31 23:36 | Emergency (ER) | payer SELFPAY ==
[2022-11-01] MEDS ORDERED: METOCLOPRAMIDE 10 MG/2mL INJ ONE (00:35)
[2022-11-01] MEDS ORDERED: NA CHLORIDE 0.9% 1,000 ML ONE (00:36)
[2022-11-01] MEDS ORDERED: dexAMETHasone 10 MG/ML VIAL ONE (00:36)
[2022-11-01] MEDS ORDERED: KETOROLAC 30 MG/ML INJ ONE (00:36)
--- NOTE | 2022-11-01 01:15 | EDPHYS ---
Physician Documentation [facility] Name: Theo Dela Cruz Age: 32 yrs Sex: Male : 1990 Arrival Date: 10/31/2022 Time: 23:36 Bed 8 Private MD: ED Physician Homero Salvador HPI: 11/01 00:01 This 32 yrs old Male presents to ER via Unassigned with complaints of Headache > 24hrs rn Old. 00:01 The patient complains of pain to the forehead. The patient describes the headache as rn aching, throbbing. Onset: The symptoms/episode began/occurred 2 day(s) ago. Associated signs and symptoms: Pertinent positives: light sensitivity . Severity of symptoms: At its worst the pain was moderate, "similar to past headaches", in the emergency department the pain is unchanged. Headache History: The patient has had previous headaches and this one is similar to previous episodes. The symptoms are alleviated by nothing. the symptoms are aggravated by lights, noise, stress. The patient has experienced similar episodes in the past. The patient has not recently seen a physician. Pt reports migraine headache, frontal, identical to other migraines, but not improving with tylenol for 48 hours. No trauma. + light and sound sensitivity. No focal neurological complaints. dropped him off. No fever, no neck stiffness.. Historical: - Allergies: 00:09 No Known Allergies; vc1 - PMHx: 00:09 ADD/ADHD; Back pain; Bipolar disorder; Chronic pain; Hypertension; Myocardial vc1 infarction; Migraine; - PSHx: 00:09 None; vc1 - Immunization history:: Client reports having NOT received the Covid vaccine. - Social history:: Smoking status: Patient denies any tobacco usage or history of. - Family history:: not pertinent. - Hospitalizations: : No recent hospitalization is reported. ROS: 00:01 Constitutional: Negative for fever, chills, and weight loss, Eyes: Negative for injury, rn pain, redness, and discharge, Neck: Negative for injury, pain, and swelling, Cardiovascular: Negative for chest pain, palpitations, and edema, Respiratory: Negative for shortness of breath, cough, wheezing, and pleuritic chest pain, Abdomen/GI: Negative for abdominal pain, nausea, vomiting, diarrhea, and constipation, Back: Negative for injury and pain, MS/Extremity: Negative for injury and deformity, Skin: Negative for injury, rash, and discoloration, Neuro: Negative for weakness, numbness, tingling, and seizure. Exam: 00:01 Constitutional: This is a well developed, well nourished patient who is awake, alert, rn and in no acute distress. Eyes: Pupils equal round and reactive to light, extra-ocular motions intact. Lids and lashes normal. Conjunctiva and sclera are non-icteric and not injected. Cornea within normal limits. Periorbital areas with no swelling, redness, or edema. Neck: Trachea midline, no thyromegaly or masses palpated, and no cervical lymphadenopathy. Supple, full range of motion without nuchal rigidity, or vertebral point tenderness. No Meningismus. Cardiovascular: Regular rate and rhythm. No pulse deficits. Respiratory: No increased work of breathing, no retractions or nasal flaring. Skin: Warm, dry, no rash MS/ Extremity: Pulses equal, no cyanosis. Neuro: Awake and alert, GCS 15, oriented to person, place, time, and situation. Cranial nerves II-XII grossly intact. Motor strength 5/5 in all extremities. Sensory grossly intact. Cerebellar exam normal. Normal gait. Vital Signs: 00:07 Weight 106.59 kg; Height 6 ft. 1 in. ; Pain 5/10; vc1 00:11 BP 141 / 109; Pulse 68; Resp 18; Temp 98.5; Pulse Ox 99% ; vc1 00:39 BP 138 / 91; Pulse 80; Pulse Ox 97% on R/A; aa9 01:29 BP 120 / 98; Pulse 56; Resp 18; Temp 98.2; Pulse Ox 100% on R/A; Pain 0/10; pf1 00:07 Body Mass Index 31.00 (106.59 kg, 185.42 cm) vc1 00:07 Pain Scale: Adult vc1 01:29 Pain Scale: Adult pf1 [place] Coma Score: 01:13 Eye Response: spontaneous(4). Motor Response: obeys commands(6). Verbal Response: rn oriented(5). Total: 15. MDM: 10/31 23:43 Patient medically screened. rn 11/01 01:13 Differential diagnosis: migraine, tension headache, vasomotor headache. Data reviewed: rn vital signs, nurses notes, and as a result, I will discharge patient. I considered the following discharge prescriptions or medication management in the emergency department Medications were administered in the Emergency Department. See MAR. Counseling: I had a detailed discussion with the patient and/or guardian regarding: the historical points, exam findings, and any diagnostic results supporting the discharge/admit diagnosis, the need for outpatient follow up, to return to the emergency department if symptoms worsen or persist or if there are any questions or concerns that arise at home. Response to treatment: the patient's symptoms have markedly improved after treatment, states "pain nearly gone". Can open eyes, smiling. . Special discussion: I discussed with the patient/guardian in detail that at this point there is no indication for admission to the hospital. It is understood, however, that if the symptoms persist or worsen the patient needs to return immediately for re-evaluation. Based on the history and exam findings, there is no indication for further emergent testing or inpatient evaluation. I discussed with the patient/guardian the need to see the neurologist for further evaluation of the symptoms. I discussed with the patient/guardian the need to see the primary care provider for further evaluation of the symptoms. 10/31 23:50 Order name: IV Start; Complete Time: 00:25 rn Administered Medications: 00:30 Drug: Ketorolac IVP 30 mg Route: IVP; Site: right hand; aa9 01:17 Follow up: Response: No adverse reaction; Marked relief of symptoms; Pain is decreased; pf1 RASS: Alert and Calm (0) 00:38 Drug: Decadron - Dexamethasone IVP 10 mg Route: IVP; Site: right hand; aa9 01:16 Follow up: Response: No adverse reaction; Marked relief of symptoms; Pain is decreased pf1 00:38 Drug: metoCLOPramide IVP 10 mg Route: IVP; Site: right hand; aa9 01:16 Follow up: Response: No adverse reaction; Marked relief of symptoms pf1 00:38 Drug: NS 0.9% IV 1000 ml Route: IV; Rate: 1000 ml; Site: right hand; aa9 01:15 Follow up: Response: No adverse reaction; Marked relief of symptoms pf1 01:16 Follow up: Response: No adverse reaction; Marked relief of symptoms; IV Status: pf1 Completed infusion; IV Intake: 1000ml Disposition Summary: 11/01/22 01:14 Discharge Ordered Location: Home rn Problem: new rn Symptoms: have improved rn Condition: Stable rn Diagnosis - Migraine, unspecified, not intractable, without status migrainosus rn Followup: rn - With: Leif Morales MD - When: As needed - Reason: Recheck today's complaints, Re-evaluation by your physician Discharge Instructions: - Discharge Summary Sheet rn - Migraine Headache rn Forms: - Medication Reconciliation Form rn - Thank You Letter rn - Antibiotic home care rn - Prescription Opioid Use rn - Work release form vc1 Signatures: Homero Salvador MD MD rn Ermelinda Seay RN RN vc1 Oxana Renee RN RN aa9 Darcie charles RN pf1 Corrections: (The following items were deleted from the chart) 00:02 00:01 Pt reports migraine headache, frontal, identical to other migraines, but not rn improving with tylenol for 48 hours. No trauma. + light and sound sensitivity. No focal neurological complaints. dropped him off. . rn
--- NOTE | 2022-11-01 01:15 | ER ---
Nurse's Notes [facility] Name: Theo Dela Cruz Age: 32 yrs Sex: Male : 1990 Arrival Date: 10/31/2022 Time: 23:36 Bed 8 Private MD: Diagnosis: Migraine, unspecified, not intractable, without status migrainosus Presentation: 11/01 00:07 Chief complaint: Patient states: I've had a migraine for over 48 hours, tonight it is vc1 affecting me really bad. I'm tripping over things. Coronavirus screen: Vaccine status: Patient reports being unvaccinated. Ebola Screen: Patient negative for fever greater than or equal to 101.5 degrees Fahrenheit, and additional compatible Ebola Virus Disease symptoms Patient denies exposure to infectious person. Patient denies travel to an Ebola-affected area in the 21 days before illness onset. No symptoms or risks identified at this time. Risk Assessment: Do you want to hurt yourself or someone else? Patient reports no desire to harm self or others. Onset of symptoms was October 29, 2022. 00:07 Method Of Arrival: Ambulatory vc1 00:07 Acuity: CRISTIAN 4 vc1 01:30 Initial Sepsis Screen: Does the patient meet any 2 criteria? No. Patient's initial pf1 sepsis screen is negative. Does the patient have a suspected source of infection?. Triage Assessment: 00:09 Headache History: The patient has had previous headaches and this one is similar to vc1 previous episodes. General: Appears uncomfortable, ill, Behavior is cooperative. Pain: Complains of pain in forehead Pain does not radiate. Pain currently is 5 out of 10 on a pain scale. at worst was 10 out of 10 on a pain scale. Pain began gradually, 2-3 days ago. Also complains of photophobia, inability to work, inability to perform activities of daily living. EENT: No deficits noted. Neuro: Level of Consciousness is awake, alert, obeys commands, Oriented to person, place, time, situation, Appropriate for age. Neuro: Reports dizziness, headache photophobia. Cardiovascular: No deficits noted. Respiratory: Airway is patent Respiratory effort is even, unlabored, Respiratory pattern is regular, symmetrical. GI: No deficits noted. No signs and/or symptoms were reported involving the gastrointestinal system. : No deficits noted. No signs and/or symptoms were reported regarding the genitourinary system. Derm: No deficits noted. No signs and/or symptoms reported regarding the dermatologic system. Musculoskeletal: No deficits noted. No signs and/or symptoms reported regarding the musculoskeletal system. Historical: - Allergies: 00:09 No Known Allergies; vc1 - PMHx: 00:09 ADD/ADHD; Back pain; Bipolar disorder; Chronic pain; Hypertension; Myocardial vc1 infarction; Migraine; - PSHx: 00:09 None; vc1 - Immunization history:: Client reports having NOT received the Covid vaccine. - Social history:: Smoking status: Patient denies any tobacco usage or history of. - Family history:: not pertinent. - Hospitalizations: : No recent hospitalization is reported. Screenin:39 [facility] ED Fall Risk Assessment (Adult) History of falling in the last 3 months, aa9 including since admission No falls in past 3 months (0 pts) Confusion or Disorientation No (0 pts) Intoxicated or Sedated No (0 pts) Impaired Gait No (0 pts) Mobility Assist Device Used Yes (1 pt) Altered Elimination No (0 pt) Score/Fall Risk Level 0 - 2 = Low Risk Oriented to surroundings, Maintained a safe environment, Educated pt \T\ family on fall prevention, incl call for assistance when getting out of bed. Abuse screen: Denies threats or abuse. Denies injuries from another. Nutritional screening: No deficits noted. Tuberculosis screening: No symptoms or risk factors identified. Assessment: 00:38 General: Appears uncomfortable, Behavior is calm, cooperative. Pain: Complains of pain aa9 in headache Pain currently is 10 out of 10 on a pain scale. Is continuous, Noted to be quiet/stoic, resistant to movement, Also complains of photophobia, inability to work, inability to perform activities of daily living. Neuro: Level of Consciousness is awake, alert, obeys commands, Oriented to person, place, time, situation. Respiratory: Airway is patent Respiratory effort is even, unlabored. 01:28 Reassessment: Patient appears in no apparent distress at this time. No changes from pf1 previously documented assessment. Patient and/or family updated on plan of care and expected duration. Pain level reassessed. Patient is alert, oriented x 3, equal unlabored respirations, skin warm/dry/pink. Patient denies pain at this time. Patient states feeling better. Patient states symptoms have improved. Vital Signs: 00:07 Weight 106.59 kg; Height 6 ft. 1 in. ; Pain 5/10; vc1 00:11 BP 141 / 109; Pulse 68; Resp 18; Temp 98.5; Pulse Ox 99% ; vc1 00:39 BP 138 / 91; Pulse 80; Pulse Ox 97% on R/A; aa9 01:29 BP 120 / 98; Pulse 56; Resp 18; Temp 98.2; Pulse Ox 100% on R/A; Pain 0/10; pf1 00:07 Body Mass Index 31.00 (106.59 kg, 185.42 cm) vc1 00:07 Pain Scale: Adult vc1 01:29 Pain Scale: Adult pf1 Adrianna Coma Score: 01:13 Eye Response: spontaneous(4). Motor Response: obeys commands(6). Verbal Response: rn oriented(5). Total: 15. ED Course: 10/31 23:41 Patient arrived in ED. ja2 23:43 Homero Salvador MD is Attending Physician. rn 11/01 00:09 Triage completed. vc1 00:09 Arm band placed on left wrist. vc1 00:20 Patient has correct armband on for positive identification. Bed in low position. Call pf1 light in reach. 00:25 Oxana Renee, BRIGIDA is Primary Nurse. aa9 00:38 Inserted saline lock: 20 gauge in right hand, using aseptic technique. aa9 01:14 Leif Morales MD is Referral Physician. rn 01:30 IV discontinued, intact, bleeding controlled, No redness/swelling at site. Pressure pf1 dressing applied. 01:30 No provider procedures requiring assistance completed. pf1 Administered Medications: 00:30 Drug: Ketorolac IVP 30 mg Route: IVP; Site: right hand; aa9 01:17 Follow up: Response: No adverse reaction; Marked relief of symptoms; Pain is decreased; pf1 RASS: Alert and Calm (0) 00:38 Drug: Decadron - Dexamethasone IVP 10 mg Route: IVP; Site: right hand; aa9 01:16 Follow up: Response: No adverse reaction; Marked relief of symptoms; Pain is decreased pf1 00:38 Drug: metoCLOPramide IVP 10 mg Route: IVP; Site: right hand; aa9 01:16 Follow up: Response: No adverse reaction; Marked relief of symptoms pf1 00:38 Drug: NS 0.9% IV 1000 ml Route: IV; Rate: 1000 ml; Site: right hand; aa9 01:15 Follow up: Response: No adverse reaction; Marked relief of symptoms pf1 01:16 Follow up: Response: No adverse reaction; Marked relief of symptoms; IV Status: pf1 Completed infusion; IV Intake: 1000ml Medication: 01:31 VIS not applicable for this client. pf1 Intake: 01:16 IV: 1000ml; Total: 1000ml. pf1 Outcome: 01:14 Discharge ordered by . rn 01:30 Discharged to home ambulatory. pf1 01:30 Condition: stable 01:30 Discharge instructions given to patient, Instructed on discharge instructions, follow up and referral plans. Demonstrated understanding of instructions, follow-up care. 01:31 Patient left the ED. pf1 Signatures: Homero Salvador MD MD rn Alexander, Jessica ja2 Calcote, Vanessa, RN RN vc1 Oxana Renee RN RN aa9 Darcie charles RN RN pf1
[2022-11-01 01:56] VITALS: BP 120/98; TEMP 98.2; O2SAT 100
== END 2022-11-01 01:31 | disposition home or self-care (01) ==
LOC: ER 23:36
DX: G43.009 Migraine without aura, not intractable, without status migrainosus (principal)
CPT/HCPCS: 96361; 96374; 96375; 99284; J1100; J2765; J7030

== ENCOUNTER 2022-11-25 20:03 | Emergency (ER) | payer SELFPAY ==
[2022-11-25] MEDS ORDERED: KETOROLAC 30 MG/ML INJ ONE (20:48)
[2022-11-25] MEDS ORDERED: HYDROCODONE/APAP 10/325 TAB ONE (20:48)
[2022-11-25] MEDS ORDERED: predniSONE 20 MG TAB ONE (20:48)
[2022-11-25 21:10] LABS: Specific Gravity 1.024 (1.005-1.030); Urine Bilirubin NEGATIVE (Negative); Urine Blood Negative (Negative); Urine Clarity Clear (Clear); Urine Color Light-Yellow (Yellow); Urine Glucose NEGATIVE (Negative); Urine Protein NEGATIVE (Negative); Urine Urobilinogen Normal (Normal); Urine pH 6.5 (5.0-7.0)
--- NOTE | 2022-11-25 21:36 | ER ---
Nurse's Notes [facility] Name: Theo Dela Cruz Age: 32 yrs Sex: Male : 1990 Arrival Date: 11/25/2022 Time: 20:03 Bed 11 Private MD: Diagnosis: Low back pain Presentation: 11/25 20:20 Chief complaint: Patient states: "I fell down 6 stairs at my apartment". Coronavirus vc1 screen: Vaccine status: Patient reports being unvaccinated. Client denies travel out of the [place] in the last 14 days. At this time, the client does not indicate any symptoms associated with coronavirus-19. Ebola Screen: Patient negative for fever greater than or equal to 101.5 degrees Fahrenheit, and additional compatible Ebola Virus Disease symptoms Patient denies exposure to infectious person. Patient denies travel to an Ebola-affected area in the 21 days before illness onset. No symptoms or risks identified at this time. Initial Sepsis Screen: Does the patient meet any 2 criteria? HR > 90 bpm. No. Patient's initial sepsis screen is negative. Does the patient have a suspected source of infection? No. Patient's initial sepsis screen is negative. Risk Assessment: Do you want to hurt yourself or someone else? Patient reports no desire to harm self or others. Onset of symptoms was November 25, 2022 at 14:00. 20:20 Method Of Arrival: Ambulatory vc1 20:20 Acuity: CRISTIAN 4 vc1 Historical: - Allergies: 20:21 No Known Allergies; vc1 - PMHx: 20:21 ADD/ADHD; Back pain; Bipolar disorder; Chronic pain; Hypertension; Migraine; Myocardial vc1 infarction; x2; - PSHx: 20:21 spinal injections; vc1 - Immunization history:: Client reports having NOT received the Covid vaccine. - Social history:: Smoking status: Patient denies any tobacco usage or history of. Screenin:57 [facility] ED Fall Risk Assessment (Adult) History of falling in the last 3 months, mb9 including since admission Yes- single mechanical fall (1 pt) Confusion or Disorientation No (0 pts) Intoxicated or Sedated No (0 pts) Impaired Gait No (0 pts) Mobility Assist Device Used No (0 pt) Altered Elimination No (0 pt) Score/Fall Risk Level 0 - 2 = Low Risk Oriented to surroundings, Maintained a safe environment, Educated pt \\T\\ family on fall prevention, incl call for assistance when getting out of bed. Abuse screen: Denies threats or abuse. Nutritional screening: No deficits noted. Nutritional screening:. Tuberculosis screening: No symptoms or risk factors identified. Assessment: 20:56 General: Appears in no apparent distress. Behavior is calm, cooperative. Pain: mb9 Complains of pain in back Pain does not radiate. Pain currently is 6 out of 10 on a pain scale. Quality of pain is described as throbbing. Neuro: Shine Agitation-Sedation Scale (RASS): 0 - Alert and Calm Level of Consciousness is awake, alert, obeys commands, Oriented to person, place, time, situation, Appropriate for age. Respiratory: Airway is patent Respiratory effort is even, unlabored, Respiratory pattern is regular, symmetrical. : No signs and/or symptoms were reported regarding the genitourinary system. Derm: Skin is pink, warm \\T\\ dry. Musculoskeletal: Range of motion: intact in all extremities. 21:48 Reassessment: Patient states feeling better. Patient states symptoms have improved. mb9 Vital Signs: 20:20 BP 140 / 111; Pulse 95; Resp 18; Temp 98.2; Pulse Ox 99% ; Weight 106.59 kg; Height 6 vc1 ft. 1 in. ; Pain 0/10; 20:56 BP 128 / 74; Pulse 68; Resp 17; Pulse Ox 99% on R/A; mb9 21:47 BP 132 / 78; Pulse 74; Resp 16; Pulse Ox 99% on R/A; mb9 20:20 Body Mass Index 31.00 (106.59 kg, 185.42 cm) vc1 20:20 Pain Scale: Adult vc1 ED Course: 20:05 Patient arrived in ED. es 20:10 Viridiana Rodriguez FNP-C [facility]. kb 20:10 Sid Simmons MD is Attending Physician. kb 20:16 Angy Lundy RN is Primary Nurse. mb9 20:21 Triage completed. vc1 20:22 Arm band placed on left wrist. vc1 20:55 Urinalysis w/ reflexes Sent. mb9 20:56 Placed in gown. Bed in low position. Call light in reach. Side rails up X 1. Client mb9 placed on continuous cardiac and pulse oximetry monitoring. NIBP monitoring applied. 20:57 No provider procedures requiring assistance completed. Patient did not have IV access mb9 during this emergency room visit. Administered Medications: 20:44 Drug: Millstone PO 10 mg-325 mg 1 tabs Route: PO; mb9 20:55 Follow up: Response: No adverse reaction mb9 20:44 Drug: predniSONE PO 60 mg Route: PO; mb9 20:55 Follow up: Response: No adverse reaction mb9 20:44 Drug: Ketorolac IM 30 mg Route: IM; Site: left deltoid; mb9 20:55 Follow up: Response: No adverse reaction mb9 Medication: 20:57 VIS not applicable for this client. mb9 Outcome: 21:35 Discharge ordered by MD. frances 21:48 Discharged to home ambulatory. mb9 21:48 Condition: stable 21:48 Discharge instructions given to patient, Instructed on discharge instructions, follow up and referral plans. Demonstrated understanding of instructions, follow-up care, medications, Prescriptions given X 3. 21:48 Patient left the ED. mb9 Signatures: Viridiana Rodriguez, CUSTOMER SOLUTIONS REPRESENTATIVE-C CUSTOMER SOLUTIONS REPRESENTATIVE-Shanna Nash Vanessa, RN RN vc1 Angy Lundy RN RN mb9
--- NOTE | 2022-11-25 21:36 | EDPHYS ---
Physician Documentation [facility] Name: Theo Dela Cruz Age: 32 yrs Sex: Male : 1990 Arrival Date: 11/25/2022 Time: 20:03 Bed 11 Private MD: ED Physician Sid Simmons HPI: 11/25 23:29 This 32 yrs old Male presents to ER via Ambulatory with complaints of Fall Injury, Back kb Pain. 23:29 Details of fall: The patient fell from a height, down approximately 6 stairs. Onset: kb The symptoms/episode began/occurred today. Associated injuries: The patient sustained left mid back and left low back, painful injury. Severity of symptoms: At their worst the symptoms were moderate, in the emergency department the symptoms are unchanged. The patient has not experienced similar symptoms in the past. The patient has not recently seen a physician. Pt reports left lower back pain that started after falling down 6 steps. Denies loc or any other injuries/pain. States he has had this pain multiple times in the past and has had to get spinal injections for it. . Historical: - Allergies: 20:21 No Known Allergies; vc1 - PMHx: 20:21 ADD/ADHD; Back pain; Bipolar disorder; Chronic pain; Hypertension; Migraine; Myocardial vc1 infarction; x2; - PSHx: 20:21 spinal injections; vc1 - Immunization history:: Client reports having NOT received the Covid vaccine. - Social history:: Smoking status: Patient denies any tobacco usage or history of. ROS: 21:26 Constitutional: Negative for fever, chills, and weight loss. kb 21:26 Back: Positive for pain at rest, pain with movement, of the left low back and left mid back. 21:26 All other systems are negative. Exam: 21:26 Constitutional: This is a well developed, well nourished patient who is awake, alert, kb and in no acute distress. Head/Face: Normocephalic, atraumatic. ENT: Moist Mucous membranes Cardiovascular: Regular rate and rhythm with a normal S1 and S2. No gallops, murmurs, or rubs. No pulse deficits. Respiratory: Respirations even and unlabored. No increased work of breathing. Talking in full sentences Abdomen/GI: Soft, non-tender. No distention Skin: Warm, dry with normal turgor. Normal color. MS/ Extremity: Pulses equal, no cyanosis. Neurovascular intact. Full, normal range of motion. Neuro: Awake and alert, GCS 15, oriented to person, place, time, and situation. Moves all extremities. Normal gait. 21:26 Back: pain, that is moderate, of the left mid back and left low back, ROM is normal, normal spinal alignment noted, CVA tenderness, is absent. Vital Signs: 20:20 BP 140 / 111; Pulse 95; Resp 18; Temp 98.2; Pulse Ox 99% ; Weight 106.59 kg; Height 6 vc1 ft. 1 in. ; Pain 0/10; 20:56 BP 128 / 74; Pulse 68; Resp 17; Pulse Ox 99% on R/A; mb9 21:47 BP 132 / 78; Pulse 74; Resp 16; Pulse Ox 99% on R/A; mb9 20:20 Body Mass Index 31.00 (106.59 kg, 185.42 cm) vc1 20:20 Pain Scale: Adult vc1 MDM: 20:10 Patient medically screened. kb 21:29 Data reviewed: vital signs, nurses notes. kb 23:28 Differential diagnosis: abrasion, contusion, fracture, strain. Test considered but Not kb performed: X-ray: x-ray lumbar spine considered, but pt has no vertebral tenderness and has had similar pain multiple times in the past. Counseling: I had a detailed discussion with the patient and/or guardian regarding: the historical points, exam findings, and any diagnostic results supporting the discharge/admit diagnosis, lab results, the need for outpatient follow up, a family practitioner, to return to the emergency department if symptoms worsen or persist or if there are any questions or concerns that arise at home. 11/25 20:19 Order name: Urinalysis w/ reflexes; Complete Time: 21:26 kb Administered Medications: 20:44 Drug: Acosta PO 10 mg-325 mg 1 tabs Route: PO; mb9 20:55 Follow up: Response: No adverse reaction mb9 20:44 Drug: predniSONE PO 60 mg Route: PO; mb9 20:55 Follow up: Response: No adverse reaction mb9 20:44 Drug: Ketorolac IM 30 mg Route: IM; Site: left deltoid; mb9 20:55 Follow up: Response: No adverse reaction mb9 Disposition: 11/26 03:43 Co-signature as Attending Physician, Sid Simmons MD I agree with the assessment sp4 and plan of care. I reviewed the patient's care provided by the Advanced Practice Provider and agree with the diagnosis and treatment plan. Disposition Summary: 11/25/22 21:35 Discharge Ordered Location: Home kb Condition: Stable kb Diagnosis - Low back pain kb Followup: kb - With: Emergency Department - When: As needed - Reason: Worsening of condition Followup: kb - With: Private Physician - When: 2 - 3 days - Reason: Recheck today's complaints, Continuance of care, Re-evaluation by your physician Discharge Instructions: - Discharge Summary Sheet kb - Acute Back Pain, Adult kb - Chronic Back Pain kb - Chronic Back Pain, [id number] kb Forms: - Medication Reconciliation Form kb - Thank You Letter kb - Antibiotic Education kb - Prescription Opioid Use kb - Work release form mb9 Prescriptions: - Medrol (Mil) 4 mg Oral Tablets, Dose Pack - take 1 tablet by ORAL route as directed - follow package instructions; 1 kb packet; Refills: 0, Product Selection Permitted - orphenadrine citrate 100 mg Oral Tablet Sustained Release - take 1 tablet by ORAL route 2 times per day As needed; 20 tablet; Refills: 0, kb Product Selection Permitted Signatures: Dispatcher [employer] Viridiana Mazariegos, GORDON NIELSENP-Ermelinda Raymond RN RN vc1 Angy Lundy RN RN mb9 Sid Simmons MD MD sp4
[2022-11-25 22:33] VITALS: TEMP 98.2; O2SAT 99
[2022-11-25 22:36] VITALS: BP 132/78
== END 2022-11-25 21:48 | disposition home or self-care (01) ==
LOC: ER 20:03
DX: M54.50 Low back pain, unspecified (principal)
CPT/HCPCS: 81003; 96372; 99284; J7512

== ENCOUNTER 2022-12-18 19:07 | Emergency (ER) | payer SELFPAY ==
--- NOTE | 2022-12-18 19:55 | ER ---
Nurse's Notes [facility] Name: Theo Dela Cruz Age: 32 yrs Sex: Male : 1990 Arrival Date: 12/18/2022 Time: 19:07 Bed 9 Private MD: Diagnosis: Low back pain;Unspecified symptoms and signs involving the musculoskeletal system Presentation: 12/18 19:25 Chief complaint: Patient states: "I have chronic back pain and I have an appointment as6 for my injections on Friday but I don't I can wait till then. Coronavirus screen: At this time, the client does not indicate any symptoms associated with coronavirus-19. Ebola Screen: No symptoms or risks identified at this time. Initial Sepsis Screen: Does the patient meet any 2 criteria? No. Patient's initial sepsis screen is negative. Does the patient have a suspected source of infection? No. Patient's initial sepsis screen is negative. Risk Assessment: Do you want to hurt yourself or someone else? Patient reports no desire to harm self or others. Onset of symptoms was December 17, 2022. 19:25 Method Of Arrival: Ambulatory as6 19:25 Acuity: CRISTIAN 4 as6 Triage Assessment: 19:28 General: Appears uncomfortable, Behavior is calm, cooperative. Pain: Complains of pain as6 in back. Musculoskeletal: Reports pain in back. Historical: - Allergies: 19:28 No Known Allergies; as6 - PMHx: 19:28 ADD/ADHD; Back pain; Bipolar disorder; Chronic pain; Hypertension; Migraine; Myocardial as6 infarction; x2; - PSHx: 19:28 SPINAL INJECTIONS; as6 - Immunization history:: Client reports having NOT received the Covid vaccine. - Social history:: Smoking status: Patient denies any tobacco usage or history of. Screenin:05 [facility] ED Fall Risk Assessment (Adult) History of falling in the last 3 months, mb9 including since admission No falls in past 3 months (0 pts) Confusion or Disorientation No (0 pts) Intoxicated or Sedated Yes (3 pts) Impaired Gait No (0 pts) Mobility Assist Device Used No (0 pt) Altered Elimination No (0 pt) Score/Fall Risk Level 0 - 2 = Low Risk Oriented to surroundings, Maintained a safe environment, Educated pt \\T\\ family on fall prevention, incl call for assistance when getting out of bed. Abuse screen: Denies threats or abuse. Nutritional screening: No deficits noted. Tuberculosis screening: No symptoms or risk factors identified. Assessment: 20:05 Reassessment: No changes from previously documented assessment. mb9 Vital Signs: 19:25 BP 135 / 107; Pulse 78; Resp 18 S; Temp 97.7(TE); Pulse Ox 100% on R/A; Weight 104.33 as6 kg (R); Height 6 ft. 1 in. (R); Pain 5/10; 20:05 BP 128 / 74; Pulse 74; Resp 18; Pulse Ox 100% on R/A; mb9 19:25 Body Mass Index 30.34 (104.33 kg, 185.42 cm) as6 19:25 Pain Scale: Adult as6 ED Course: 19:10 Patient arrived in ED. es 19:28 Triage completed. as6 19:29 Arm band placed on. as6 19:38 Angy Lundy, RN is Primary Nurse. mb9 19:38 Placed in gown. Bed in low position. Call light in reach. Side rails up X 1. Client mb9 placed on continuous cardiac and pulse oximetry monitoring. NIBP monitoring applied. 19:40 Nabil Sher MD is Attending Physician. kdr 20:05 No provider procedures requiring assistance completed. Patient did not have IV access mb9 during this emergency room visit. Administered Medications: 20:00 Drug: Ketorolac IM 30 mg Route: IM; Site: right deltoid; mb9 20:05 Drug: Ariel PO 10 mg-325 mg 1 tabs Route: PO; mb9 20:05 Drug: predniSONE PO 60 mg Route: PO; mb9 Medication: 20:06 VIS not applicable for this client. mb9 Outcome: 19:54 Discharge ordered by . kdr 20:06 Discharged to home ambulatory. mb9 20:06 Condition: stable 20:06 Discharge instructions given to patient, Instructed on discharge instructions, follow up and referral plans. Demonstrated understanding of instructions, follow-up care, medications, Prescriptions given X 2. 20:20 Patient left the ED. mb9 Signatures: Nabil Sher MD MD kdr Salyer, Edna es Slawson, Ashby, RN RN as6 Angy Lundy, BRIGIDA RN mb9
--- NOTE | 2022-12-18 19:55 | EDPHYS ---
Physician Documentation [facility] Name: Theo Dela Cruz Age: 32 yrs Sex: Male : 1990 Arrival Date: 12/18/2022 Time: 19:07 Bed 9 Private MD: ED Physician Nabil Sher HPI: 12/18 20:13 This 32 yrs old Male presents to ER via Ambulatory with complaints of Back Pain, kdr Difficulty standing. 20:13 This 32 yrs old Male presents to ER via Ambulatory with complaints of Back Pain, kdr Difficulty standing. 20:13 The patient presents with pain that is acute, with no known mechanism of injury. The kdr symptoms are located in the low back. 20:14 Candidate states that he has been doing a lot of lifting lately. He indicated that he kdr normally has to get his back injected once a month in the clinic and from a provider from home he cannot remember. This has been going on for about 8 years. Patient was here about a week and a half ago for similar complaint. He states that occasionally he is unable to make it between injections. Patient states his pain is along his left paraspinal area. It is not different from prior episodes of exacerbation. He has no new symptoms. He denies any perineal numbness or pain. He denies loss of control of his bowels or bladder.. Onset: The symptoms/episode began/occurred gradually, 1.5 day(s) ago. Severity of symptoms: At their worst the symptoms were mild moderate in the emergency department the symptoms are unchanged. The patient has experienced similar episodes in the past, multiple times, chronically. The patient has not recently seen a physician. Historical: - Allergies: 19:28 No Known Allergies; as6 - PMHx: 19:28 ADD/ADHD; Back pain; Bipolar disorder; Chronic pain; Hypertension; Migraine; Myocardial as6 infarction; x2; - PSHx: 19:28 SPINAL INJECTIONS; as6 - Immunization history:: Client reports having NOT received the Covid vaccine. - Social history:: Smoking status: Patient denies any tobacco usage or history of. ROS: 20:14 Constitutional: Negative for fever, chills, and weight loss, Eyes: Negative for injury, kdr pain, redness, and discharge, Neck: Negative for injury, pain, and swelling, Cardiovascular: Negative for chest pain, palpitations, and edema, Respiratory: Negative for shortness of breath, cough, wheezing, and pleuritic chest pain, Abdomen/GI: Negative for abdominal pain, nausea, vomiting, diarrhea, and constipation, : Negative for injury, bleeding, discharge, and swelling, MS/Extremity: Negative for injury and deformity, Skin: Negative for injury, rash, and discoloration, Neuro: Negative for headache, weakness, numbness, tingling, and seizure activity. Psych: Negative for depression, anxiety, suicide ideation, homicidal ideation, and hallucinations, Allergy/Immunology: Negative for hives, rash, and allergies, Endocrine: Negative for neck swelling, polydipsia, polyuria, polyphagia, and marked weight changes, Hematologic/Lymphatic: Negative for swollen nodes, abnormal bleeding, and unusual bruising. 20:14 Back: Positive for pain at rest, pain with movement, of the left low back and left mid back. Exam: 20:14 Constitutional: This is a well developed, well nourished patient who is awake, alert, kdr and in no acute distress. Head/Face: Normocephalic, atraumatic. Eyes: Pupils equal round and reactive to light, extra-ocular motions intact. Lids and lashes normal. Conjunctiva and sclera are non-icteric and not injected. Cornea within normal limits. Periorbital areas with no swelling, redness, or edema. Neck: Trachea midline, no thyromegaly or masses palpated, and no cervical lymphadenopathy. Supple, full range of motion without nuchal rigidity, or vertebral point tenderness. No Meningismus. Chest/axilla: Normal chest wall appearance and motion. Nontender with no deformity. No lesions are appreciated. Cardiovascular: Regular rate and rhythm with a normal S1 and S2. No gallops, murmurs, or rubs. Normal PMI, no JVD. No pulse deficits. Respiratory: Lungs have equal breath sounds bilaterally, clear to auscultation and percussion. No rales, rhonchi or wheezes noted. No increased work of breathing, no retractions or nasal flaring. Abdomen/GI: Soft, non-tender, with normal bowel sounds. No distension or tympany. No guarding or rebound. No evidence of tenderness throughout. Skin: Warm, dry with normal turgor. Normal color with no rashes, no lesions, and no evidence of cellulitis. MS/ Extremity: Pulses equal, no cyanosis. Neurovascular intact. Full, normal range of motion. Neuro: Awake and alert, GCS 15, oriented to person, place, time, and situation. Cranial nerves II-XII grossly intact. Motor strength 5/5 in all extremities. Sensory grossly intact. Cerebellar exam normal. Normal gait. Psych: Awake, alert, with orientation to person, place and time. Behavior, mood, and affect are within normal limits. 20:14 Back: pain, that is moderate, of the left low back and left mid back, ROM is painful, with rotation to the right, normal spinal alignment noted, CVA tenderness, that is mild. Vital Signs: 19:25 BP 135 / 107; Pulse 78; Resp 18 S; Temp 97.7(TE); Pulse Ox 100% on R/A; Weight 104.33 as6 kg (R); Height 6 ft. 1 in. (R); Pain 5/10; 20:05 BP 128 / 74; Pulse 74; Resp 18; Pulse Ox 100% on R/A; mb9 19:25 Body Mass Index 30.34 (104.33 kg, 185.42 cm) as6 19:25 Pain Scale: Adult as6 MDM: 19:54 Patient medically screened. kdr 20:14 Data reviewed: vital signs, nurses notes. ED course: Patient was nontoxic in the ED and kdr had relief from the interventions given. The patient is otherwise stable and happy with the care provided the plan for discharge and follow-up. Administered Medications: 20:00 Drug: Ketorolac IM 30 mg Route: IM; Site: right deltoid; mb9 20:05 Drug: [place] PO 10 mg-325 mg 1 tabs Route: PO; mb9 20:05 Drug: predniSONE PO 60 mg Route: PO; mb9 Disposition Summary: 12/18/22 19:54 Discharge Ordered Location: Home kdr Problem: an acute exacerbation kdr Symptoms: have improved kdr Condition: Stable kdr Diagnosis - Low back pain kdr - Unspecified symptoms and signs involving the musculoskeletal system kdr Followup: kdr - With: Private Physician - When: 2 - 3 days - Reason: If symptoms return, Further diagnostic work-up, Recheck today's complaints, Continuance of care, Re-evaluation by your physician Discharge Instructions: - Discharge Summary Sheet kdr - Musculoskeletal Pain kdr - Chronic Back Pain, [id number] kdr Forms: - Medication Reconciliation Form kdr - Thank You Letter kdr - Antibiotic Education kdr - Prescription Opioid Use kdr - [email or web address] kdr - Work release form mb9 Prescriptions: - Medrol (Mil) 4 mg Oral Tablets, Dose Pack - take 1 tablet by ORAL route as directed - follow package instructions; 1 kdr packet; Refills: 0, Product Selection Permitted - orphenadrine citrate 100 mg Oral tablet extended release - take 1 tablet by ORAL route 2 times per day As needed; 10 tablet; Refills: 0, kdr Product Selection Permitted Signatures: Nabil Sher MD MD kdr Yon Murry RN RN as6 Angy Lundy RN RN mb9
[2022-12-18] MEDS ORDERED: HYDROCODONE/APAP 10/325 TAB ONE (20:08)
[2022-12-18] MEDS ORDERED: predniSONE 20 MG TAB ONE (20:09)
[2022-12-18] MEDS ORDERED: KETOROLAC 30 MG/ML INJ ONE (20:09)
[2022-12-18 20:34] VITALS: TEMP 97.7; O2SAT 100
[2022-12-18 20:36] VITALS: BP 128/74
== END 2022-12-18 20:20 | disposition home or self-care (01) ==
LOC: ER 19:07
DX: R29.91 Unspecified symptoms and signs involving the musculoskeletal system (principal); I10 Essential (primary) hypertension
CPT/HCPCS: 96372; 99284; J7512

== ENCOUNTER 2023-01-24 00:24 | Emergency (ER) | payer SELFPAY ==
--- OUTSIDE RECORDS SUMMARY | 2023-01-24 00:27 | XMS REPORT | Continuity of Care Document ---
:1990 Author Organization [facility] t Address [address] [place] [address] Care Team Providers Name Role Phone Unavailable Unavailable Unavailable Problems This patient has no known problems. Allergies, Adverse Reactions, Alerts This patient has no known allergies or adverse reactions. Medications This patient has no known medications. Procedures This patient has no known procedures. Encounters Start End Encounter Admission Attending Care Care Encounter Source Date/Time Date/Time Type Type Clinicians Facility Department ID 2023-01-03 2023-01-03 Outpatient [facility] [id number] [id number] Luís 20:24:31 20:24:31 [id number] F Osei 2023-01-01 2023-01-01 Outpatient [facility] [id number] Luís 17:30:19 17:30:19 [id number] F Osei 2022-12-19 2022-12-19 Outpatient [facility] [id number] Luís 14:35:36 14:35:36 [id number] F Osei Results This patient has no known results.
[2023-01-24 01:05] LABS: SARS-CoV-2 Antigen Rapid Res Negative (Negative)
--- NOTE | 2023-01-24 01:50 | EDPHYS ---
Physician Documentation [facility] Name: Theo Dela Cruz Age: 32 yrs Sex: Male : 1990 Arrival Date: 01/24/2023 Time: 00:24 Bed 7 Private MD: ED Physician Rick Waldron HPI: 01/24 00:41 This 32 yrs old Male presents to ER via Ambulatory with complaints of Fever. snw 00:41 The patient reports fever, that was measured at 101 degrees Fahrenheit. Onset: The snw symptoms/episode began/occurred suddenly, just prior to arrival. Associated signs and symptoms: Pertinent positives: malaise. Severity of symptoms: At their worst the symptoms were mild. It is unknown whether or not the patient has had similar symptoms in the past. It is unknown whether or not the patient has recently seen a physician. Historical: - Allergies: 00:39 No Known Allergies; pf1 - PMHx: 00:39 ADD/ADHD; Bipolar disorder; Chronic pain; Hypertension; Back pain; pf1 - PSHx: 00:39 SPINAL INJECTIONS; pf1 - Immunization history:: Adult Immunizations not up to date, Client reports having NOT received the Covid vaccine. Last tetanus immunization: > 10 years ago Flu vaccine is not up to date. - Social history:: Smoking status: Patient denies any tobacco usage or history of. Patient uses alcohol, occasionally. Patient/guardian denies using street drugs. ROS: 00:39 Eyes: Negative for injury, pain, redness, and discharge, ENT: Negative for injury, snw pain, and discharge, Neck: Negative for injury, pain, and swelling, Cardiovascular: Negative for chest pain, palpitations, and edema, Respiratory: Negative for shortness of breath, cough, wheezing, and pleuritic chest pain, Abdomen/GI: Negative for abdominal pain, nausea, vomiting, diarrhea, and constipation, Back: Negative for injury and pain, : Negative for injury, bleeding, discharge, and swelling, MS/Extremity: Negative for injury and deformity, Skin: Negative for injury, rash, and discoloration, Psych: Negative for depression, anxiety, suicide ideation, homicidal ideation, and hallucinations. 00:39 Constitutional: Positive for body aches, fever, malaise. 00:39 Neuro: Positive for weird sensation. Exam: 00:39 Constitutional: This is a well developed, well nourished patient who is awake, alert, snw and in no acute distress. Head/Face: Normocephalic, atraumatic. Eyes: Pupils equal round and reactive to light, extra-ocular motions intact. Lids and lashes normal. Conjunctiva and sclera are non-icteric and not injected. Cornea within normal limits. Periorbital areas with no swelling, redness, or edema. ENT: Nares patent. No nasal discharge, no septal abnormalities noted. Tympanic membranes are normal and external auditory canals are clear. Oropharynx with no redness, swelling, or masses, exudates, or evidence of obstruction, uvula midline. Mucous membranes moist. Neck: Trachea midline, no thyromegaly or masses palpated, and no cervical lymphadenopathy. Supple, full range of motion without nuchal rigidity, or vertebral point tenderness. No Meningismus. Chest/axilla: Normal chest wall appearance and motion. Nontender with no deformity. No lesions are appreciated. Cardiovascular: Regular rate and rhythm with a normal S1 and S2. No gallops, murmurs, or rubs. Normal PMI, no JVD. No pulse deficits. Respiratory: Lungs have equal breath sounds bilaterally, clear to auscultation and percussion. No rales, rhonchi or wheezes noted. No increased work of breathing, no retractions or nasal flaring. Abdomen/GI: Soft, non-tender, with normal bowel sounds. No distension or tympany. No guarding or rebound. No evidence of tenderness throughout. Back: No spinal tenderness. No costovertebral tenderness. Full range of motion. Skin: Warm, dry with normal turgor. Normal color with no rashes, no lesions, and no evidence of cellulitis. MS/ Extremity: Pulses equal, no cyanosis. Neurovascular intact. Full, normal range of motion. Neuro: Awake and alert, GCS 15, oriented to person, place, time, and situation. Cranial nerves II-XII grossly intact. Motor strength 5/5 in all extremities. Sensory grossly intact. Cerebellar exam normal. Normal gait. Psych: Awake, alert, with orientation to person, place and time. Behavior, mood, and affect are within normal limits. Vital Signs: 00:36 BP 136 / 110; Pulse 88; Resp 16; Temp 98.7; Pulse Ox 98% on R/A; Weight 109.77 kg; pf1 Height 6 ft. 1 in. ; Pain 0/10; 00:58 BP 128 / 99; Pulse 84; Resp 16; Pulse Ox 96% on R/A; kd3 01:36 BP 137 / 96; Pulse 76; Resp 16; Pulse Ox 96% on R/A; kd3 00:36 Body Mass Index 31.93 (109.77 kg, 185.42 cm) pf1 00:36 Pain Scale: Adult pf1 MDM: 00:27 Patient medically screened. snw 01:17 Differential diagnosis: viral Infection, bacterial infection. Data reviewed: vital snw signs, nurses notes, lab test result(s). Counseling: I had a detailed discussion with the patient and/or guardian regarding: the historical points, exam findings, and any diagnostic results supporting the discharge/admit diagnosis, the presence of at least one elevated blood pressure reading (>120/80) during this emergency department visit, lab results, the need for outpatient follow up, for definitive care, to return to the emergency department if symptoms worsen or persist or if there are any questions or concerns that arise at home. Special discussion: Based on the history and exam findings, there is no indication for further emergent testing or inpatient evaluation. I discussed with the patient/guardian the need to see the primary care provider for further evaluation of the symptoms. 01/24 00:33 Order name: SARS RAPID; Complete Time: 01:17 snw 01/24 00:33 Order name: Strep snw 01/24 01:07 Order name: Throat Culture EDMS Administered Medications: No medications were administered Disposition Summary: 01/24/23 01:49 Discharge Ordered Location: Home snw Condition: Stable snw Diagnosis - Acute upper respiratory infection, unspecified snw Followup: snw - With: Emergency Department - When: As needed - Reason: Worsening of condition Followup: snw - With: Private Physician - When: 2 - 3 days - Reason: Recheck today's complaints, Continuance of care, Re-evaluation by your physician Discharge Instructions: - Discharge Summary Sheet snw - Fever, Adult snw - Upper Respiratory Infection, Adult snw Forms: - Work release form snw - Medication Reconciliation Form snw - Thank You Letter snw - Antibiotic Education snw - Prescription Opioid Use snw - Patient Portal Instructions snw Prescriptions: - Zyrtec 10 mg Oral Tablet - take 1 tablet by ORAL route once daily As needed; 20 tablet; Refills: 0, snw Product Selection Permitted - Pepcid 20 mg Oral Tablet - take 1 tablet by ORAL route once daily; 20 tablet; Refills: 0, Product snw Selection Permitted Signatures: Dispatcher [employer] Apple Harris FNP-C PIER WORKER-Ashleyw Darcie Delgado, RN RN pf1
--- NOTE | 2023-01-24 01:50 | ER ---
Nurse's Notes [facility] Name: Theo Dela Cruz Age: 32 yrs Sex: Male : 1990 Arrival Date: 01/24/2023 Time: 00:24 Bed 7 Private MD: Diagnosis: Acute upper respiratory infection, unspecified Presentation: 01/24 00:36 Chief complaint: Patient states: cough,onset 1 day with fever of 101.2F orally,onset pf1 2100. Patient stated took TheraFlu 30ml at 1 hour ago. Coronavirus screen: Vaccine status: Patient reports being unvaccinated. Client denies travel out of the [place] in the last 14 days. Client presents with at least one sign or symptom that may indicate coronavirus-19. Standard/surgical mask placed on the client. Ebola Screen: Patient negative for fever greater than or equal to 101.5 degrees Fahrenheit, and additional compatible Ebola Virus Disease symptoms. Initial Sepsis Screen: Does the patient meet any 2 criteria? No. Patient's initial sepsis screen is negative. Does the patient have a suspected source of infection? No. Patient's initial sepsis screen is negative. Risk Assessment: Do you want to hurt yourself or someone else? Patient reports no desire to harm self or others. 00:36 Method Of Arrival: Ambulatory pf1 00:36 Acuity: CRISTIAN 3 pf1 00:59 Onset of symptoms was January 24, 2023. kd3 Triage Assessment: 00:58 General: Appears uncomfortable, Behavior is calm, cooperative. Pain: Complains of pain kd3 in headache. Neuro: Level of Consciousness is awake, alert, obeys commands, Oriented to person, place, time, situation. Cardiovascular: Patient's skin is warm and dry. Respiratory: Airway is patent Trachea midline Respiratory effort is even, unlabored, Respiratory pattern is regular, symmetrical. Historical: - Allergies: 00:39 No Known Allergies; pf1 - PMHx: 00:39 ADD/ADHD; Bipolar disorder; Chronic pain; Hypertension; Back pain; pf1 - PSHx: 00:39 SPINAL INJECTIONS; pf1 - Immunization history:: Adult Immunizations not up to date, Client reports having NOT received the Covid vaccine. Last tetanus immunization: > 10 years ago Flu vaccine is not up to date. - Social history:: Smoking status: Patient denies any tobacco usage or history of. Patient uses alcohol, occasionally. Patient/guardian denies using street drugs. Screenin:[address] [facility] ED Fall Risk Assessment (Adult) History of falling in the last 3 months, kd3 including since admission No falls in past 3 months (0 pts) Confusion or Disorientation No (0 pts) Intoxicated or Sedated No (0 pts) Impaired Gait No (0 pts) Mobility Assist Device Used No (0 pt) Altered Elimination No (0 pt) Score/Fall Risk Level 0 - 2 = Low Risk Maintained a safe environment. Abuse screen: Denies threats or abuse. Denies injuries from another. Nutritional screening: No deficits noted. Tuberculosis screening: No symptoms or risk factors identified. Assessment: 00:59 General: see triage assessment . kd3 Vital Signs: 00:36 BP 136 / 110; Pulse 88; Resp 16; Temp 98.7; Pulse Ox 98% on R/A; Weight 109.77 kg; pf1 Height 6 ft. 1 in. ; Pain 0/10; 00:58 BP 128 / 99; Pulse 84; Resp 16; Pulse Ox 96% on R/A; kd3 01:36 BP 137 / 96; Pulse 76; Resp 16; Pulse Ox 96% on R/A; kd3 00:36 Body Mass Index 31.93 (109.77 kg, 185.42 cm) pf1 00:36 Pain Scale: Adult pf1 ED Course: 00:25 Patient arrived in ED. am2 00:26 Apple Beebe FNP-C is PHCP. snw 00:26 Rick Waldron MD is Attending Physician. snw 00:39 Triage completed. pf1 00:41 Maria Antonia Otero RN is Primary Nurse. kd3 00:48 SARS RAPID Sent. kd3 00:48 Strep Sent. kd3 00:58 Arm band placed on right wrist. kd3 00:59 No provider procedures requiring assistance completed. kd3 00:59 Patient has correct armband on for positive identification. Provided Education on: . kd3 02:14 Patient did not have IV access during this emergency room visit. vc1 Administered Medications: No medications were administered Medication: 00:59 VIS not applicable for this client. kd3 Outcome: 01:49 Discharge ordered by . snw 02:13 Discharged to home ambulatory. vc1 02:13 Condition: good 02:13 Discharge instructions given to patient, Instructed on discharge instructions, follow up and referral plans. medication usage, Demonstrated understanding of instructions, follow-up care, medications, Prescriptions given X 2. 02:14 Patient left the ED. vc1 Signatures: Apple Beebe, SENIOR MATERIALS ANALYST-C SENIOR MATERIALS ANALYST-Csnw Orquidea White am2 Maria Antonia Otero, RN RN kd3 Ermelinda Seay RN RN vc1 Darcie Delgado RN RN pf1
[2023-01-24 02:27] VITALS: TEMP 98.7
[2023-01-24 02:28] VITALS: O2SAT 96
[2023-01-24 02:29] VITALS: BP 137/96
== END 2023-01-24 02:14 | disposition home or self-care (01) ==
LOC: ER 00:24
DX: J06.9 Acute upper respiratory infection, unspecified (principal)
CPT/HCPCS: 36415; 87070; 87081; 87811; 99283